=== PATIENT | male | born 1945 | race Asian ===

== ENCOUNTER 2018-01-08 14:00 | Inpatient (IN) | payer OTHER ==
[~2018-01-08] VITALS: Ht 162.6 cm; Wt 74.1 kg
[2018-01-08 15:14] LABS: Basophils # (auto) 0 uL; Basophils % (auto) 0.1 % (0.0-2.0); Eosinophils # (auto) 0 uL; Hematocrit 48.8 % (41.0-53.0); Hemoglobin 15.8 g/dL (13.5-17.5); Lymphocytes # (auto) 0.7 uL; Lymphocytes % (auto) 5.1 % (10.0-50.0); Mean Corpuscular Hemoglobin 31.8 pg (28.0-32.0); Mean Corpuscular Hgb Conc. 32.3 g/dL (32.0-36.0); Mean Corpuscular Volume 98.5 fL (80.0-100.0); Monocytes # (auto) 0.7 uL; Monocytes % (auto) 5.1 % (0.0-12.0); Neutrophils # (auto) 12.9 uL; Neutrophils % (auto) 89.7 % (37.0-80.0); Platelet Count (auto) 282 10^3/uL (140-450); Red Blood Cells 4.95 10^6/uL (4.5-5.90); Red Cell Distribution Width 13.7 % (11.8-14.3); White Blood Cell 14.4 10^3/uL (4.4-10.8)
[2018-01-08] MEDS ORDERED: SODIUM CHLORIDE 0.9% 1,000 ML IV ONE ×2 (15:18)
[2018-01-08] MEDS ORDERED: InsuLIN REG 1unit/0.01ml Soln (100units/ml) IV ONE (15:30)
[2018-01-08 15:32] LABS: Albumin 2.9 g/dL (3.4-5.0); BUN/Creatinine Ratio 19.5; Bilirubin, Total 0.8 mg/dL (0.2-1.0); Calcium 8.4 mg/dL (8.5-10.1); Magnesium 3.6 mg/dL (1.6-2.6); Potassium 4.6 mmol/L (3.5-5.1); Total Protein 7.1 g/dL (6.4-8.2)
[2018-01-08] MEDS ORDERED: PIPERACILLIN-TAZOB 3.375GM 100 ML IV ONE (16:00)
[2018-01-08] MEDS ORDERED: InsuLIN R (HUMAN) 100 UNITS in SODIUM CHL 0.9% 99 ML IV SCH ×2 (16:25→20:03)
[2018-01-08] MEDS ORDERED: DEXTROSE (50%) 50ML SYRG IV PRN (16:30)
[2018-01-08] MEDS: ACCU-CHEK COMFORT CURVE STRIP VI SCH ×5 (16:30→22:37)
[2018-01-08] MEDS ORDERED: cefTRIAXone 1GM/10ml IVPUSH 10 ML IV ONE (17:00)
[2018-01-08] MEDS ORDERED: ASPirin-EC 81 mg tab PO ONE ×2 (17:00→17:15)
[2018-01-08] MEDS ORDERED: DOCUSATE SOD 100 MG CAP PO PRN (17:15)
[2018-01-08] MEDS ORDERED: ACETAMINOPHEN 325 MG TAB PO PRN (17:15)
[2018-01-08] MEDS ORDERED: CARVEDILOL 3.125 MG TAB PO ONE (17:15)
[2018-01-08] MEDS ORDERED: FAMOTIDINE 20 MG TAB PO ONE (17:15)
[2018-01-08] MEDS ORDERED: MORPHINE SULF INJ 2 MG/ML SYRINGE 1ML IV PRN ×2 (17:15)
[2018-01-08] MEDS ORDERED: ENALAPRIL MALEATE 2.5 MG TAB PO ONE (17:15)
[2018-01-08] MEDS ORDERED: MULTIPLE VITAMIN TAB PO ONE (17:15)
[2018-01-08] MEDS ORDERED: NITROGLYCERIN 0.4 MG SL TAB SL PRN (17:15)
[2018-01-08] MEDS ORDERED: HYDROcodone-ACET 5/325MG TAB PO PRN (17:15)
[2018-01-08] MEDS ORDERED: TEMAZEPAM 15 MG CAP PO PRN (17:15)
[2018-01-08] MEDS ORDERED: ONDANSETRON HCL 4 MG/2 ML VIAL IV PRN (17:15)
[2018-01-08] MEDS: Glucerna Carbsteady SHAKE Vanilla 8oz PO SCH (18:00)
[2018-01-08 18:07] LABS: Urine Bacteria NONE SEEN /hpf (None Seen); Urine Blood Negative /uL (Negative); Urine Specific Gravity 1.026 (1.001-1.035); Urine WBC <1 /hpf (0 - 3)
[2018-01-08 18:15] LABS: Lactic Acid w/Reflex 2.2 mmol/L (0.4-2.0)
[2018-01-08 18:28] LABS: Magnesium 3.3 mg/dL (1.6-2.6); Phosphorus 3.8 mg/dL (2.5-4.90)
[2018-01-08] MEDS ORDERED: SODIUM CHLORIDE 0.9% 2,000 ML IV ONE (20:15)
[2018-01-08] MEDS: SODIUM CHLORIDE 0.9% 1,000 ML IV SCH ×2 (21:00→21:29)
[2018-01-08] MEDS: CARVEDILOL 3.125 MG TAB PO SCH (21:29)
[2018-01-08] MEDS: LINEZOLID 600MG/300ML 300 ML IV SCH (21:37)
[2018-01-08] MEDS: ATORVASTATIN 20 MG TAB PO SCH (21:38)
[2018-01-08] MEDS ORDERED: FAMOTIDINE 20 MG TAB PO SCH (22:00)
[2018-01-08 22:25] LABS: BUN/Creatinine Ratio 19.5; Calcium 7.5 mg/dL (8.5-10.1)
[2018-01-08 22:28] LABS: Lactic Acid w/Reflex 3.4 mmol/L (0.4-2.0)
[2018-01-09] MEDS: ACCU-CHEK COMFORT CURVE STRIP VI SCH ×9 (00:05→23:09)
[2018-01-09 03:36] LABS: Basophils # (auto) 0.1 uL; Basophils % (auto) 0.4 % (0.0-2.0); Eosinophils # (auto) 0 uL; Hematocrit 41.1 % (41.0-53.0); Hemoglobin 13.9 g/dL (13.5-17.5); Lymphocytes # (auto) 2.1 uL; Lymphocytes % (auto) 13.8 % (10.0-50.0); Mean Corpuscular Hemoglobin 30.7 pg (28.0-32.0); Mean Corpuscular Hgb Conc. 33.8 g/dL (32.0-36.0); Mean Corpuscular Volume 90.7 fL (80.0-100.0); Monocytes # (auto) 0.6 uL; Monocytes % (auto) 4.1 % (0.0-12.0); Neutrophils # (auto) 12.4 uL; Neutrophils % (auto) 81.7 % (37.0-80.0); Platelet Count (auto) 233 10^3/uL (140-450); Red Blood Cells 4.53 10^6/uL (4.5-5.90); Red Cell Distribution Width 12.9 % (11.8-14.3); White Blood Cell 15.2 10^3/uL (4.4-10.8)
[2018-01-09] MEDS: InsuLIN REG 1unit/0.01ml Soln (100units/ml) SC SCH ×6 (04:00→23:10)
[2018-01-09] MEDS: LINEZOLID 600MG/300ML 300 ML IV SCH ×2 (06:04→18:19)
[2018-01-09 06:18] VITALS: BP 126/69
[2018-01-09 06:27] VITALS: BP 126/69
[2018-01-09] MEDS ORDERED: ZOLP10TA PO (06:33)
[2018-01-09] MEDS: Glucerna Carbsteady SHAKE Vanilla 8oz PO SCH ×3 (08:00→18:00)
[2018-01-09 08:08] VITALS: BP 121/75
[2018-01-09] MEDS: cefTRIAXone 1GM/10ml IVPUSH 10 ML IV SCH (08:46)
[2018-01-09] MEDS ORDERED: FAMOTIDINE 20 MG TAB PO SCH (10:00)
[2018-01-09] MEDS: ASPirin-EC 81 mg tab PO SCH (10:08)
[2018-01-09] MEDS: CARVEDILOL 3.125 MG TAB PO SCH ×2 (10:08→22:58)
[2018-01-09] MEDS: MULTIPLE VITAMIN TAB PO SCH (10:08)
[2018-01-09] MEDS: ENALAPRIL MALEATE 2.5 MG TAB PO SCH (10:09)
[2018-01-09 11:02] LABS: Albumin 2.5 g/dL (3.4-5.0); BUN/Creatinine Ratio 18.6; Bilirubin, Total 0.7 mg/dL (0.2-1.0); Calcium 7.2 mg/dL (8.5-10.1)
[2018-01-09 11:07] LABS: Potassium 2.7 mmol/L (3.5-5.1)
[2018-01-09] MEDS ORDERED: POTASSIUM CHL 20MEQ/100ML 100 ML IV ONE ×2 (11:45→16:00)
[2018-01-09] MEDS ORDERED: POTASSIUM CHL 20 Meq TABLET PO ONE (11:45)
[2018-01-09 12:30] VITALS: BP 106/63
[2018-01-09] MEDS ORDERED: FLUCONAZOLE 200MG/100ML 100 ML IV ONE (15:45)
[2018-01-09 16:36] VITALS: BP 107/58
[2018-01-09] MEDS: NYSTATIN (MOUTH-THROAT) 500,000 UNITS/5 ML SUSP MT SCH ×2 (17:32→22:54)
[2018-01-09 22:00] VITALS: BP 125/63
[2018-01-09] MEDS: ATORVASTATIN 20 MG TAB PO SCH (22:54)
[2018-01-10] MEDS: InsuLIN REG 1unit/0.01ml Soln (100units/ml) SC SCH ×6 (03:43→23:46)
[2018-01-10] MEDS: ACCU-CHEK COMFORT CURVE STRIP VI SCH ×6 (03:43→23:45)
[2018-01-10 05:44] VITALS: BP 106/64
[2018-01-10 06:29] LABS: Basophils # (auto) 0 uL; Basophils % (auto) 0.2 % (0.0-2.0); Eosinophils # (auto) 0.1 uL; Eosinophils % (auto) 0.7 % (0.0-7.0); Hematocrit 35.9 % (41.0-53.0); Hemoglobin 12.6 g/dL (13.5-17.5); Lymphocytes # (auto) 2.4 uL; Lymphocytes % (auto) 24.6 % (10.0-50.0); Mean Corpuscular Hemoglobin 32.3 pg (28.0-32.0); Mean Corpuscular Hgb Conc. 35.2 g/dL (32.0-36.0); Mean Corpuscular Volume 91.9 fL (80.0-100.0); Monocytes # (auto) 0.6 uL; Monocytes % (auto) 6.4 % (0.0-12.0); Neutrophils # (auto) 6.5 uL; Neutrophils % (auto) 68.1 % (37.0-80.0); Platelet Count (auto) 190 10^3/uL (140-450); Red Blood Cells 3.91 10^6/uL (4.5-5.90); Red Cell Distribution Width 12.7 % (11.8-14.3); White Blood Cell 9.6 10^3/uL (4.4-10.8)
[2018-01-10] MEDS: NYSTATIN (MOUTH-THROAT) 500,000 UNITS/5 ML SUSP MT SCH ×4 (06:36→22:55)
[2018-01-10] MEDS: LINEZOLID 600MG/300ML 300 ML IV SCH ×2 (06:37→17:41)
[2018-01-10 07:02] LABS: Albumin 2.4 g/dL (3.4-5.0); BUN/Creatinine Ratio 15.9; Bilirubin, Total 1.4 mg/dL (0.2-1.0); Potassium 3.5 mmol/L (3.5-5.1); Total Protein 5.6 g/dL (6.4-8.2)
[2018-01-10] MEDS: cefTRIAXone 1GM/10ml IVPUSH 10 ML IV SCH (08:24)
[2018-01-10] MEDS: Glucerna Carbsteady SHAKE Vanilla 8oz PO SCH ×3 (08:25→17:41)
[2018-01-10 09:00] VITALS: BP 118/60
[2018-01-10] MEDS: CARVEDILOL 3.125 MG TAB PO SCH ×2 (10:30→22:56)
[2018-01-10] MEDS: FAMOTIDINE 20 MG TAB PO SCH ×2 (10:30→22:56)
[2018-01-10] MEDS: MULTIPLE VITAMIN TAB PO SCH (10:30)
[2018-01-10] MEDS: ASPirin-EC 81 mg tab PO SCH (10:30)
[2018-01-10] MEDS: ENALAPRIL MALEATE 2.5 MG TAB PO SCH (10:31)
[2018-01-10 13:00] VITALS: BP 108/66
[2018-01-10 17:00] VITALS: BP 122/62
[2018-01-10 20:00] VITALS: BP 133/73
[2018-01-10 22:00] VITALS: BP 132/73
[2018-01-10] MEDS: ATORVASTATIN 20 MG TAB PO SCH (22:55)
[2018-01-11] MEDS: ACCU-CHEK COMFORT CURVE STRIP VI SCH ×2 (04:07→08:14)
[2018-01-11] MEDS: InsuLIN REG 1unit/0.01ml Soln (100units/ml) SC SCH ×2 (04:07→08:29)
[2018-01-11 05:00] VITALS: BP 129/72
[2018-01-11] MEDS: NYSTATIN (MOUTH-THROAT) 500,000 UNITS/5 ML SUSP MT SCH (06:21)
[2018-01-11] MEDS: LINEZOLID 600MG/300ML 300 ML IV SCH (06:22)
[2018-01-11] MEDS: Glucerna Carbsteady SHAKE Vanilla 8oz PO SCH (08:13)
[2018-01-11] MEDS: cefTRIAXone 1GM/10ml IVPUSH 10 ML IV SCH (08:29)
[2018-01-11 09:00] VITALS: BP 111/65
[2018-01-11] MEDS: CARVEDILOL 3.125 MG TAB PO SCH (10:00)
[2018-01-11] MEDS: ASPirin-EC 81 mg tab PO SCH (10:02)
[2018-01-11] MEDS: MULTIPLE VITAMIN TAB PO SCH (10:02)
[2018-01-11] MEDS: FAMOTIDINE 20 MG TAB PO SCH (10:02)
[2018-01-11] MEDS: ENALAPRIL MALEATE 2.5 MG TAB PO SCH (10:03)
[2018-01-11 10:43] VITALS: BP 111/65
[2018-01-11 12:46] VITALS: BP 116/73
== END 2018-01-11 13:50 | disposition home or self-care (01) | DRG 871 ==
LOC: EDBD 14:00 → ER 14:00 → OVERFLOW 14:01 → WEST WING 01-09 04:14 → TELE-WESTW 01-09 05:46
PROVIDERS: ADMIT Internal Medicine; ATTEND Internal Medicine
DX: A41.9 Sepsis, unspecified organism (principal); E11.00 Type 2 diabetes mellitus with hyperosmolarity without nonketotic hyperglycemic-hyperosmolar coma (NKHHC); E44.0 Moderate protein-calorie malnutrition; I13.0 Hypertensive heart and chronic kidney disease with heart failure and stage 1 through stage 4 chronic kidney disease, or unspecified chronic kidney disease; N18.4 Chronic kidney disease, stage 4 (severe); N39.0 Urinary tract infection, site not specified; E11.21 Type 2 diabetes mellitus with diabetic nephropathy; E11.22 Type 2 diabetes mellitus with diabetic chronic kidney disease; E86.0 Dehydration; I25.10 Atherosclerotic heart disease of native coronary artery without angina pectoris; I50.9 Heart failure, unspecified; E78.5 Hyperlipidemia, unspecified; G96.8 Other specified disorders of central nervous system; I70.0 Atherosclerosis of aorta; I25.2 Old myocardial infarction; Z83.3 Family history of diabetes mellitus; Z91.14 Patient's other noncompliance with medication regimen; Z95.1 Presence of aortocoronary bypass graft; Z79.899 Other long term (current) drug therapy; Z68.28 Body mass index [BMI] 28.0-28.9, adult
CPT/HCPCS: 36415; 36600; 70450; 71045; 80048; 80053; 81001; 82010; 82805; 82962; 83036; 83605; 83735; 83880; 83930; 84100; 84443; 84484; 85025; 87040; 87086; 93005; 93306; 96361; 96365; 96367; 96375; G0378; J0696; J1450; J1815; J2543; J3480

== ENCOUNTER 2019-04-02 11:32 | Inpatient (IN) | payer OTHER ==
[2019-04-02] VITALS (34 sets, daily range): BP systolic 90–117; BP diastolic 38–65
[~2019-04-02] VITALS: Ht 167.6 cm; Wt 75.4 kg
[~2019-04-02 11:32] MED LIST: ZOLP10TA PO
[2019-04-02] MEDS: DOPamine 1600MCG/ML D5W 250 ML IV SCH ×2 (11:42→21:18)
[2019-04-02] MEDS: NOREPINEPHRINE 8 MG/250ML KIT 250 ML IV SCH ×2 (11:50→11:59)
[2019-04-02] MEDS ORDERED: NOREPINEPHRINE 8 MG/250ML KIT 250 ML IV ONE (11:52)
[2019-04-02] MEDS ORDERED: ONDANSETRON HCL 4 MG/2 ML VIAL ONE ×2 (11:56→13:30)
[2019-04-02] MEDS ORDERED: ASPirin 325 MG TAB PO ONE (12:00)
[2019-04-02] MEDS ORDERED: HEPARIN SODIUM (PORCINE) 5000 UNITS/ML 1ML VIAL IV ONE (12:00)
[2019-04-02 12:07] LABS: Basophils # (auto) 0.1 uL; Basophils % (auto) 0.7 % (0.0-2.0); Eosinophils # (auto) 0.6 uL; Eosinophils % (auto) 6.4 % (0.0-7.0); Hematocrit 39.9 % (41.0-53.0); Hemoglobin 13.4 g/dL (13.5-17.5); Lymphocytes # (auto) 4.1 uL; Lymphocytes % (auto) 45.2 % (10.0-50.0); Mean Corpuscular Hemoglobin 32.2 pg (28.0-32.0); Mean Corpuscular Hgb Conc. 33.7 g/dL (32.0-36.0); Mean Corpuscular Volume 95.5 fL (80.0-100.0); Monocytes # (auto) 0.5 uL; Monocytes % (auto) 5.8 % (0.0-12.0); Neutrophils # (auto) 3.8 uL; Neutrophils % (auto) 41.9 % (37.0-80.0); Nucleated Red Blood Cells % 0.1 %; Platelet Count (auto) 263 10^3/uL (140-450); Red Blood Cells 4.18 10^6/uL (4.5-5.90); Red Cell Distribution Width 13.3 % (11.8-14.3)
[2019-04-02] MEDS ORDERED: ONDANSETRON HCL 4 MG/2 ML VIAL IV ONE (12:15)
[2019-04-02 12:22] LABS: INR 1.07 (0.9-1.15); Partial Thromboplastin Time 26.2 sec (23.64-32.05)
[2019-04-02 12:24] LABS: Albumin 3.4 g/dL (3.4-5.0); Calcium 8.1 mg/dL (8.5-10.1); Magnesium 2.3 mg/dL (1.6-2.6); Potassium 3.8 mmol/L (3.5-5.1)
[2019-04-02] MEDS ORDERED: IOHEXOL 350 MG/ML 100ML IJ ONE (12:29)
[2019-04-02 12:30] LABS: BUN/Creatinine Ratio 19.3; Bilirubin, Total 0.8 mg/dL (0.2-1.0); Total Protein 7.2 g/dL (6.4-8.2)
[2019-04-02] MEDS ORDERED: SODIUM CHLORIDE 0.9% 2,000 ML IV ONE (12:30)
[2019-04-02] MEDS ORDERED: LIDOCAINE 2%HCL (LOCAL ANESTH.) INJ 20ML MDV ONE (12:30)
[2019-04-02] MEDS ORDERED: ANGIOMAX 250 MG VIAL IV ONE (12:30)
[2019-04-02] MEDS ORDERED: MIDAZOLAM HCL 1MG/1ML-2 ML VIAL ONE (12:31)
[2019-04-02] MEDS ORDERED: fentaNYL CITRATE 100 MCG/2 ML VL ONE (12:31)
[2019-04-02] MEDS ORDERED: SODIUM CHL 0.9% 50 ML ONE (12:31)
[2019-04-02] MEDS ORDERED: EPTIFIBATIDE INJ (2MG/ML) 10ML VIAL IV ONE (12:32)
[2019-04-02] MEDS ORDERED: EPINEPHrine HCL 1 MG/10 ML SYRG ONE (12:42)
[2019-04-02] MEDS ORDERED: ATROPINE SULF 1 MG/10ml SYR ONE (12:42)
[2019-04-02] MEDS ORDERED: DEXTROSE (50%) 50ML SYRG IV PRN (12:45)
[2019-04-02] MEDS ORDERED: hydrALAZINE HCL 20 MG/ML VL IV PRN (12:45)
[2019-04-02] MEDS ORDERED: ONDANSETRON HCL 4 MG/2 ML VIAL IV PRN (12:45)
[2019-04-02] MEDS ORDERED: HYDROcodone-ACET 5/325MG TAB PO PRN (12:45)
[2019-04-02] MEDS ORDERED: MORPHINE SULF INJ 2 MG/ML SYRINGE 1ML IV PRN ×2 (12:45)
[2019-04-02] MEDS ORDERED: ACETAMINOPHEN 500 MG TAB PO PRN (12:45)
[2019-04-02] MEDS ORDERED: NITROGLYCERIN 0.4 MG SL TAB SL PRN (12:45)
[2019-04-02] MEDS ORDERED: IODIXANOL 320MG/ML 100ML BTL IV ONE (12:51)
[2019-04-02 13:17] LABS: Cholesterol 159 mg/dL (< 200); Triglycerides 156 mg/dL (< 150)
[2019-04-02 13:19] LABS: HDL Cholesterol 57 mg/dL (40-59); LDL Cholesterol 90 mg/dL (< 100)
[2019-04-02] MEDS ORDERED: CLOPIDOGREL 300 MG TAB ONE (13:28)
[2019-04-02] MEDS: SODIUM CHLORIDE 0.9% 1,000 ML IV SCH ×2 (14:59→21:17)
--- NOTE | 2019-04-02 15:39 | NUR ---
ICU pt S/P Cardiac Cath Report received from JOSH VELASQUEZ. LUIS ANTONIO BETH brought to bed following Cardiac catheterization, on groundwater monitoring technician and portable oxygen. Patient transfered to ICU bed, connected to ICU monitoring and oxygen. ANGIOSEAL RT. GROIN. Patient educated on need to keep leg straight and flat. Patient verbalized understanding. Site assessed for any bleeding, redness or swelling. Pedal pulses on affected leg assessed for positive tissue perfusion. Patient instructed on need to notify staff immediately if any pain, burning or wetness to site, and any lower back pain. Patient educated on new cardiac medications. All questions and concerns addressed, patient verbalized understanding of all education and instruction. See notes for any further. NOTE:
--- NOTE | 2019-04-02 16:45 | NUR ---
Family updated on pt status Family of LUIS ANTONIO BETH updated on patient's status and condition. All questions and concerns addressed. verbalized understanding. VISITING AT THE BS.
[2019-04-02] MEDS: ACCU-CHEK COMFORT CURVE STRIP VI SCH ×2 (17:04→21:49)
[2019-04-02] MEDS: InsuLIN REG 1unit/0.01ml Soln (100units/ml) SC SCH ×2 (17:06→21:49)
[2019-04-02] MEDS ORDERED: DOPamine 1600mCg/ml 400MG/250ml NSorD5 KIT/BAG IV ONE (17:37)
[2019-04-02] MEDS: ATORVASTATIN 20 MG TAB PO SCH (21:39)
[2019-04-03] VITALS (94 sets, daily range): BP systolic 72–131; BP diastolic 20–79
[2019-04-03 04:12] LABS: INR 1.07 (0.9-1.15); Partial Thromboplastin Time 29.1 sec (23.64-32.05)
[2019-04-03] MEDS: SODIUM CHLORIDE 0.9% 1,000 ML IV SCH ×4 (04:12→19:38)
[2019-04-03 04:17] LABS: BUN/Creatinine Ratio 19.6; Calcium 7.7 mg/dL (8.5-10.1); Potassium 3.2 mmol/L (3.5-5.1)
[2019-04-03 04:19] LABS: Basophils # (auto) 0.1 uL; Basophils % (auto) 0.4 % (0.0-2.0); Eosinophils # (auto) 0 uL; Hematocrit 32.8 % (41.0-53.0); Hemoglobin 11.8 g/dL (13.5-17.5); Lymphocytes # (auto) 1.3 uL; Lymphocytes % (auto) 9.1 % (10.0-50.0); Mean Corpuscular Hemoglobin 32.8 pg (28.0-32.0); Mean Corpuscular Hgb Conc. 35.9 g/dL (32.0-36.0); Mean Corpuscular Volume 91.4 fL (80.0-100.0); Monocytes % (auto) 7.3 % (0.0-12.0); Neutrophils # (auto) 11.4 uL; Neutrophils % (auto) 83.2 % (37.0-80.0); Nucleated Red Blood Cells % 0.1 %; Platelet Count (auto) 242 10^3/uL (140-450); Red Blood Cells 3.59 10^6/uL (4.5-5.90); White Blood Cell 13.7 10^3/uL (4.4-10.8)
--- NOTE | 2019-04-03 06:00 | NUR ---
ASSESSMENT Patient slept on and off during night. No hematoma or bleeding at angio site. vital signs are stable with drips.
[2019-04-03] MEDS: ACCU-CHEK COMFORT CURVE STRIP VI SCH ×4 (06:45→22:13)
[2019-04-03] MEDS: InsuLIN REG 1unit/0.01ml Soln (100units/ml) SC SCH ×4 (06:45→22:13)
[2019-04-03] MEDS: DOPamine 1600MCG/ML D5W 250 ML IV SCH ×2 (06:48→17:35)
--- NOTE | 2019-04-03 07:30 | NUR ---
REPORT REPORT RECEIVED FROM ESSIE RNBRIANNA. PT RESTING IN BED WITH EYES CLOSED AND VSS. CONTINUE TO MONITOR.
--- NOTE | 2019-04-03 09:30 | NUR ---
PT GOT UP WITH THE HELP OF HIS TO VOID IN THE TOILET. HE SAID HE TOLERATED IT FINE. INSTRUCTED PT TO NOT GET OOB DUE TO LOW BP AND ON PRESSORS. HE EXPRESSED UNDERSTANDING.
[2019-04-03] MEDS: CLOPIDOGREL BISULFATE 75 MG TAB PO SCH (09:49)
[2019-04-03] MEDS: ASPirin-EC 81 mg tab PO SCH (09:49)
--- NOTE | 2019-04-03 11:50 | NUR ---
DR WANG IS ASSIGNED TO THE PT AND CALLED AND LEFT A MESSAGE TO NOTIFY OF K 3.2.
--- NOTE | 2019-04-03 12:52 | NUR ---
FREDDIE CUTLER REGARDING LOW SODIUM OF 128. Addendum: 04/03/19 at 1305 by Che Rob RN ERROR WRONG PATIENT
--- NOTE | 2019-04-03 12:55 | NUR ---
MD VISIT PT SEEN AND EXAMINED BY DR WANG. UPDATED HIM ON THE TP'S CURRENT CONDITION AND POC AND NOTIFIED HIM OF K 3.2. ORDERS RECEIVED FOR KCL EFFERVESCENT 50mEQ PO NOW. CHECK K AND MAGNESIUM LEVELS AT 1600. LEVOPHED TURNED DOWN TO 3 MCG BP OF 120/66. CONTINUE TO MONITOR.
[2019-04-03] MEDS ORDERED: POTASSIUM EFFERVESENT TAB 25 MEQ PO ONE (13:00)
[2019-04-03] MEDS ORDERED: POTASSIUM EFFERVESENT TAB 25 MEQ GT ONE (13:15)
[2019-04-03] MEDS ORDERED: POTASSIUM EFFERVESENT TAB 25 MEQ GT PRN (13:15)
[2019-04-03 16:28] LABS: Magnesium 1.9 mg/dL (1.6-2.6); Potassium 3.9 mmol/L (3.5-5.1)
[2019-04-03] MEDS: NOREPINEPHRINE 8 MG/250ML KIT 250 ML IV SCH (17:34)
--- NOTE | 2019-04-03 17:55 | NUR ---
ACCUCHECK OF 145 AND PT GIVEN 2 UNITS OF REGULAR INSULIN SQ. Addendum: 04/03/19 at 2010 by Che Rob RN LEVOPHED TURNED OFF BP 116/61, WAS INFUSING AT 1 MCG.
--- NOTE | 2019-04-03 19:30 | NUR ---
MAGNESIUM LEVEL OF 1.9 AND PT TO BE GIVEN 2 GM IV MAGNESIUM PER STANDING ORDER. STARTED FIRST GRAM TO RUN OVER ONE HOUR.
[2019-04-03] MEDS: MAGNESIUM SULFATE 1GM/100ML 100 ML IV PRN ×2 (19:35→20:57)
--- NOTE | 2019-04-03 19:45 | NUR ---
REPORT REPORT GIVEN TO BRIANNA FOUNTAIN RN.
--- NOTE | 2019-04-03 20:11 | NUR ---
PT RESTING QUIETLY, DENIES ANY PAIN, SOB OR N/V. CONTINUE TO MONITOR,.
[2019-04-03] MEDS: ATORVASTATIN 20 MG TAB PO SCH (22:13)
[2019-04-04] VITALS (65 sets, daily range): BP systolic 91–141; BP diastolic 39–87
[2019-04-04] MEDS: SODIUM CHLORIDE 0.9% 1,000 ML IV SCH ×2 (03:45→13:08)
[2019-04-04 04:06] LABS: Potassium 3.7 mmol/L (3.5-5.1)
[2019-04-04 04:10] LABS: BUN/Creatinine Ratio 15.9; Calcium 7.8 mg/dL (8.5-10.1); Magnesium 2.4 mg/dL (1.6-2.6)
--- NOTE | 2019-04-04 04:20 | NUR ---
OUT OF BED WITNESSED PATIENT STANDING IN THE ROOM. ALL THE WIRES AND IVS ARE CONNECTED BUT OXYGEN IS REMOVED. PATIENT DID NOT USE CALL LIGHT EVEN IF IT WAS INSTRUCTED TO DO. NOTED CALL LIGHT IS ON THE BED. WHEN ASKED HE SAID THAT HE WAS GOING TO USE RESTROOM AND HE DIDN'T WANT TO DISTURB ANYONE. PATIENT IS AWAKE ALERT AND ORIENTED X4. SAT. SHOWS 82%. PLACED PATIENT ON 2L OXYGEN VIA NASAL CANNULA. PATIENT USED RESTROOM AND SAT ON THE RECLINER HE WANTED. Addendum: 04/04/19 at 0433 by Andre Yeung RN INSTRUCTED PATIENT TO USE CALL LIGHT WHEN HE NEEDS ANY HELP.
[2019-04-04 04:23] LABS: Cholesterol 129 mg/dL (< 200); HDL Cholesterol 69 mg/dL (40-59); LDL Cholesterol 57 mg/dL (< 100); Triglycerides 87 mg/dL (< 150)
[2019-04-04 04:34] LABS: Basophils # (auto) 0 uL; Basophils % (auto) 0.1 % (0.0-2.0); Eosinophils # (auto) 0 uL; Eosinophils % (auto) 0.1 % (0.0-7.0); Hematocrit 32.5 % (41.0-53.0); Hemoglobin 11.1 g/dL (13.5-17.5); Lymphocytes # (auto) 1.1 uL; Lymphocytes % (auto) 9.3 % (10.0-50.0); Mean Corpuscular Hemoglobin 31.8 pg (28.0-32.0); Mean Corpuscular Volume 93.5 fL (80.0-100.0); Monocytes # (auto) 0.9 uL; Monocytes % (auto) 6.9 % (0.0-12.0); Neutrophils # (auto) 10.3 uL; Neutrophils % (auto) 83.6 % (37.0-80.0); Platelet Count (auto) 199 10^3/uL (140-450); Red Blood Cells 3.48 10^6/uL (4.5-5.90); Red Cell Distribution Width 13.1 % (11.8-14.3); White Blood Cell 12.3 10^3/uL (4.4-10.8)
--- NOTE | 2019-04-04 06:00 | NUR ---
PATIENT IS SITTING ON THE RECLINER AND SLEEPING. VITAL SIGNS ARE STABLE
[2019-04-04] MEDS: InsuLIN REG 1unit/0.01ml Soln (100units/ml) SC SCH ×4 (07:00→22:00)
[2019-04-04] MEDS: ACCU-CHEK COMFORT CURVE STRIP VI SCH ×4 (07:00→22:00)
--- NOTE | 2019-04-04 07:30 | NUR ---
REPORT REPORT RECEIVED FROM ESSIE RNBRIANNA. PT SITTING UP IN THE CHAIR, EYES CLOSED, APPEARS TO BE ASLEEP. VSS. REMAINS ON DOPAMINE DRIP , CURRENTLY AT 3 MCG/KG/MIN. CONTINUE TO MONITOR.
--- NOTE | 2019-04-04 08:05 | NUR ---
ASSESSMENT PT AWAKE AND SITTING UP IN THE RECLINER WITH HIS LEGS ELEVATED. A/O X4. MOVES ALL EXTREMITIES. ABLE TO FOLLOW SIMPLE COMMANDS. LUNGS CLEAR EXCEPT FOR DIMINISHED WITH INSPIRATORY CRACKLES IN THE BILATERAL BASES POSTERIOR. O2 AT 3 L/M VIA NC WITH AN O2 SAT OF 88-89%. INCREASED THE O2 TO 4 L/M VIA NC WITH O2 SAT THEN UP TO 92%. TELE SR 96 WITH A FIRST DEGREE HB . PALPABLE PULSES TO ALL EXTREMITIES WITH NO EDEMA NOTED. ABD SOFT WITH + BOWEL SOUNDS NOTED. LAST BM WAS SUNDAY. USES URINAL AND HE VOIDED QS CLEAR YELLOW URINE. PT WITH IV DOPAMINE AT 3 MCG AND BP OF 111/59 AND SO TURNED DOWN TO 2 MCG. DENIES ANY PAIN, SOB OR N/V. CONTINUE TO MONITOR.
--- NOTE | 2019-04-04 09:39 | NUR ---
ASSISTED PT FROM CHAIR TO TOILET. GAVE LIGHT FOR CALL ORTEGA TO USE WHEN HE IS FINISHED. AT THE BEDSIDE. I INSTRUCTE HIM NOT TO GET UP BY HIMSELF. HE EXPRESSED UNDERSTANDING.
--- NOTE | 2019-04-04 09:47 | NUR ---
ELIMINATION/ACTIVITY ASSISTED PT BACK TO THE CHAIR FROM THE TOILET. ASSISTED PT WITH PERICARE. PT ABLE TO HAVE A BM. NOT SEEN BY RN.
[2019-04-04] MEDS: ASPirin-EC 81 mg tab PO SCH (10:05)
[2019-04-04] MEDS: CLOPIDOGREL BISULFATE 75 MG TAB PO SCH (10:05)
--- NOTE | 2019-04-04 11:10 | NUR ---
PT REMAINS UP IN THE CHAIR. BP OF 106/68 AND TURNED OFF DOPAMINE. CONTINUE TO MONITOR BP.
--- NOTE | 2019-04-04 12:15 | NUR ---
ACCUCHECK OF 112 AND NO COVERAGE PER SLIDING SCALE. PT REMAINS UP IN THE CHAIR. DENIES ANY DISCOMFORT OR SOB.
--- NOTE | 2019-04-04 13:55 | NUR ---
MD VISIT PT SEEN AND EXAMINED BY DR WANG. PT CAN BE DOWNGRADED TO TELEMETRY IF BP REMAINS STALE AT 1600.
--- NOTE | 2019-04-04 15:00 | NUR ---
ASSISTED PT TO TOILET WHERE HE VOIDED QS AND THEN BACK TO THE CHAIR. PT SOB AND O2 SAT OF 84% ALTHOUGH O2 HAS COME OUT OF PT'S NOSE. REAPPLIED O2 AND ASSISTED PT INTO CHAIR. I HAD HIM TAKE DEEP BREATHS AND O2 SAT UP TO 92%. IVF DISCONTINUED PER MD ORDER. CONTINUE TO MONITOR.
--- NOTE | 2019-04-04 16:00 | NUR ---
WASHED HAIR WITH SHAMPOO CAP AND GIVEN CHG BATH. CLEAN GOWN AND TELE MONITOR #2 APPLIED.
--- NOTE | 2019-04-04 16:16 | NUR ---
PT BEING TRANSFERRED TO ROOM 249b. PT AND HIS ARE AWARE. ATTEMPTED TO CALL REPORT BUT RN PROVIDING PT CARE.
--- NOTE | 2019-04-04 16:34 | NUR ---
REPORT CALLED TO BECKA, RECEIVING RN, FOR ROOM 249b.
--- NOTE | 2019-04-04 17:15 | NUR ---
TRANSFERRED PT TO ROOM #249B VIA BED WITH ALL BELONGINGS ACCOMPANIED BY HIS . PLACED IN ROOM 249B AND CONNECTED TO BEDSIDE O2 AND MADE B[facility]KA, RECEIVING RN, AWARE OF PT'S ARRIVAL.
--- NOTE | 2019-04-04 17:20 | NUR ---
PT ARRIVED FROM ICU VIA WHEELCHAIR, ALERT ORIENTED X4, NO DISTRESS NOTED, PT ASSISTED IN BED, PT STARTED TACHYPNEIC, SATURATION 78%, APPLIED OXYGEN 3 LITER, SATURATION WHEN UP SLOWLY TO 93 %, PT AT BED SIDE AWARE
--- NOTE | 2019-04-04 17:30 | NUR ---
PT CONTINUE TO BE TACHY DIANDRAA 107, TACHYPNEIC 25, PAGE RESPIRATORY THERAPIST, PAGE MY CHARGE NURSE AND LET HER KNOW MY PT UPDATE
--- NOTE | 2019-04-04 17:40 | NUR ---
BM PT HAS LARGE BM, KEPT CLEAN AND DRY, PATIENT'S ALWAYS ASSISTING HER STATED HE USED OM ME
--- NOTE | 2019-04-04 17:50 | NUR ---
PAGE DR WANG PT IS NOT IMPROVING
[2019-04-04] MEDS ORDERED: FUROSEMIDE 40 MG/4 ML VIAL ONE (17:56)
--- NOTE | 2019-04-04 17:57 | NUR ---
DR WANG CALLED BACK WITH STAT ORDERS OF CHEST X RAY STAT AND LASIX 30 MG X 1 DOSE NOW STATED PT IS FLUID OVER LOAD AND NEED TO BE DIURESIS
[2019-04-04] MEDS ORDERED: FUROSEMIDE 40 MG/4 ML VIAL IV ONE (18:00)
--- NOTE | 2019-04-04 18:00 | NUR ---
PT SYMPTOMS START IMPROVED, PT APPEAR CALM AND RELAX, CONTINUE MONITORING PT, PATIENT'S AT BED SIDE
--- NOTE | 2019-04-04 18:14 | NUR ---
PT CONTINUE STABLE CONTINUE MONITORING
--- NOTE | 2019-04-04 20:00 | NUR ---
Opening Shift Note Assumed care of patient, awake and alert. Patient complains of increased shortness of breath. Respirations slightly labored; breath sounds diminished; skin color pale. SP02 95% with Oxygen at 5l/min via nasal canula. Respiratory Therapy called to patient's bedside for evaluation. Oxygen increased to 9L/min via Oxymizer. Patient instructed on POC and to call for assist PRN, will continue to monitor for changes Q1hr and PRN. Bed in low position and call light in reach.
--- NOTE | 2019-04-04 21:34 | NUR ---
Dr. Nain Maldonado at patient's bedside for evaluation. New orders written for AM labs: BNP, CBC, CMP and Chest x-ray.
[2019-04-04] MEDS: ATORVASTATIN 20 MG TAB PO SCH (22:13)
[2019-04-05 05:00] VITALS: BP 150/79
[2019-04-05] MEDS: ACCU-CHEK COMFORT CURVE STRIP VI SCH ×4 (06:11→22:19)
[2019-04-05] MEDS: InsuLIN REG 1unit/0.01ml Soln (100units/ml) SC SCH ×4 (06:11→22:00)
--- NOTE | 2019-04-05 06:30 | NUR ---
Patient noted with loose brown stool x2. Patient states he has had "diarrhea" since and requested that I contact Dr. Maldonado. No abdominal pain or cramping. Patient is afebrile.
[2019-04-05 06:40] LABS: Basophils # (auto) 0 uL; Basophils % (auto) 0.2 % (0.0-2.0); Eosinophils # (auto) 0 uL; Hematocrit 33.7 % (41.0-53.0); Hemoglobin 11.9 g/dL (13.5-17.5); Lymphocytes # (auto) 1.8 uL; Lymphocytes % (auto) 11.1 % (10.0-50.0); Mean Corpuscular Hemoglobin 32.3 pg (28.0-32.0); Mean Corpuscular Hgb Conc. 35.2 g/dL (32.0-36.0); Mean Corpuscular Volume 91.7 fL (80.0-100.0); Monocytes % (auto) 6.4 % (0.0-12.0); Neutrophils # (auto) 13.1 uL; Neutrophils % (auto) 82.3 % (37.0-80.0); Platelet Count (auto) 231 10^3/uL (140-450); Red Blood Cells 3.68 10^6/uL (4.5-5.90); White Blood Cell 15.9 10^3/uL (4.4-10.8)
[2019-04-05] MEDS ORDERED: FUROSEMIDE 20 MG/2 ML VIAL IV ONE (07:00)
[2019-04-05 07:04] LABS: BUN/Creatinine Ratio 17.7; Magnesium 2.3 mg/dL (1.6-2.6); Potassium 3.5 mmol/L (3.5-5.1)
--- NOTE | 2019-04-05 07:20 | NUR ---
PATIENT AWAKE, ALERT, ORIENTEDx4. LABORED BREATHING, PURSED LIP. ON OXYMIZER NC AT 9L 98% SOB ON EXERTION. PROVIDED HYGIENE CARE. PT HAD BM LIQUID BROWN. BED LOCKED AND IN LOWEST POSITION, CALL LIGHT WITHIN REACH. WILL CONTINUE TO MONITOR.
[2019-04-05 09:00] VITALS: BP 150/85
[2019-04-05] MEDS: CLOPIDOGREL BISULFATE 75 MG TAB PO SCH (10:17)
[2019-04-05] MEDS: ASPirin-EC 81 mg tab PO SCH (10:17)
[2019-04-05] MEDS ORDERED: METOPROLOL SUCCINATE XL 50 MG TAB PO SCH (11:15)
[2019-04-05] MEDS ORDERED: POTASSIUM CHL 20 Meq TABLET PO ONE (12:30)
[2019-04-05] MEDS ORDERED: DIPHENOXYLATE W/ATROPINE 2.5 MG TAB PO PRN (12:30)
[2019-04-05] MEDS ORDERED: DOXYCYCLINE 100MG/250ML 250 ML IV SCH (12:30)
[2019-04-05 13:00] VITALS: BP 135/79
[2019-04-05] MEDS: PIPERACILLIN-TAZOB 3.375GM 100 ML IV SCH ×2 (14:39→20:10)
[2019-04-05] MEDS: CARVEDILOL 3.125 MG TAB PO SCH ×2 (14:41→22:15)
[2019-04-05 17:00] VITALS: BP 123/73
--- NOTE | 2019-04-05 17:25 | NUR ---
PT C/O SOB AT REST. PT USING ACCESSORY MUSCLES. PLACED PT ON TRIPOD VS: 97.9; 95; 28; 96% 9L OXYMIZER; 140/80 DR. WANG CONTACTED, AND MADE AWARE OF STATUS. PER MD PT TO BE TRANSFERRED TO [facility], CHARGE NURSE, SPECIAL DELIVERY WORKER MADE AWARE. WILL CONTINUE TO MONITOR.
[2019-04-05] MEDS ORDERED: FUROSEMIDE 20 MG TAB PO SCH (18:00)
[2019-04-05] MEDS: FUROSEMIDE 20 MG/2 ML VIAL IV SCH (18:00)
--- NOTE | 2019-04-05 18:30 | NUR ---
PT IN TRIPOD- STATES FEELING BETTER, EASIER TO BREATH. FAMILY AT BEDSIDE. AWAITING TRANSFER WILL CONTINUE TO MONITOR.
[2019-04-05 22:00] VITALS: BP 136/73
[2019-04-05] MEDS ORDERED: LISINOPRIL 5 MG TAB PO SCH (22:00)
[2019-04-05] MEDS: ATORVASTATIN 20 MG TAB PO SCH (22:14)
[2019-04-05 23:05] VITALS: BP 136/73
[2019-04-06] MEDS: PIPERACILLIN-TAZOB 3.375GM 100 ML IV SCH ×4 (01:48→20:13)
[2019-04-06] MEDS: FUROSEMIDE 20 MG/2 ML VIAL IV SCH ×2 (05:44→17:52)
[2019-04-06] MEDS: ACCU-CHEK COMFORT CURVE STRIP VI SCH ×4 (05:50→22:13)
[2019-04-06] MEDS: InsuLIN REG 1unit/0.01ml Soln (100units/ml) SC SCH ×4 (05:55→22:00)
[2019-04-06 06:00] VITALS: BP 126/75
--- NOTE | 2019-04-06 07:10 | NUR ---
PT ON HIGH FOWLERS, ON BIPAP AT MOMENT. TOLERATING WELL. RR: 17; 98% BED LOCKED AND IN LOWEST POSITION, CALL LIGHT WITHIN REACH. WILL CONTINUE TO MONITOR.
[2019-04-06 07:20] LABS: Basophils # (auto) 0.1 uL; Basophils % (auto) 0.4 % (0.0-2.0); Eosinophils # (auto) 0.1 uL; Eosinophils % (auto) 0.5 % (0.0-7.0); Hematocrit 33.5 % (41.0-53.0); Hemoglobin 11.6 g/dL (13.5-17.5); Lymphocytes % (auto) 8.6 % (10.0-50.0); Mean Corpuscular Hemoglobin 32.4 pg (28.0-32.0); Mean Corpuscular Hgb Conc. 34.7 g/dL (32.0-36.0); Mean Corpuscular Volume 93.4 fL (80.0-100.0); Monocytes # (auto) 0.8 uL; Monocytes % (auto) 7.4 % (0.0-12.0); Neutrophils # (auto) 9.3 uL; Neutrophils % (auto) 83.1 % (37.0-80.0); Platelet Count (auto) 241 10^3/uL (140-450); Red Blood Cells 3.58 10^6/uL (4.5-5.90); White Blood Cell 11.2 10^3/uL (4.4-10.8)
--- NOTE | 2019-04-06 07:40 | NUR ---
RT NOTE: PT WAS TAKEN OFF OF BIPAP AT THIS TIME. PT WAS PLACED ON 6L OXYMIZER. PT STATED THAT HE FEELS BETTER. NO S/S OF SOB. JOSH HUANG MADE AWARE OF CHANGES. WILL CONTINUE TO MONITOR PT.
[2019-04-06 07:42] LABS: Potassium 3.3 mmol/L (3.5-5.1)
[2019-04-06 07:45] LABS: BUN/Creatinine Ratio 21.5
--- NOTE | 2019-04-06 07:50 | NUR ---
PT ON HIGH FOWLERS; NOW ON 6L OXYMIZER, TOLERATING WELL. PT REPORTS BREATHING IS EASIER. RR:19; HR: 80; 98% CALL LIGHT WITHIN REACH.
[2019-04-06 09:00] VITALS: BP 104/59
[2019-04-06] MEDS: CARVEDILOL 3.125 MG TAB PO SCH ×2 (10:24→22:11)
[2019-04-06] MEDS: CLOPIDOGREL BISULFATE 75 MG TAB PO SCH (10:24)
[2019-04-06] MEDS: ASPirin-EC 81 mg tab PO SCH (10:24)
[2019-04-06] MEDS ORDERED: POTASSIUM EFFERVESENT TAB 25 MEQ PO ONE (11:15)
--- NOTE | 2019-04-06 11:42 | NUR ---
DR. WANG IN TO SEE PT. PT AND IN AGREEMENT WITH PLAN OF CARE. PT CURRENTLY ON 5L OXYMIZER. TOLERATING THERAPY WELL.
[2019-04-06 13:00] VITALS: BP 108/71
--- NOTE | 2019-04-06 13:58 | NUR ---
SPUTUM & STOOL SPECIMEN COLLECTED; SENT TO LAB.
--- NOTE | 2019-04-06 15:23 | NUR ---
Nutrition Assessment Notes Est energy needs: [id number] kcals (23-25 kcals BW) Est protein needs: 58-73 gms (0.8-1.0 gms/kg BW) Will continue to monitor and reassess prn. Addendum: 04/06/19 at [address] Amended: Links added.
[2019-04-06 17:00] VITALS: BP 120/66
[2019-04-06 22:00] VITALS: BP 122/70
[2019-04-06] MEDS: ATORVASTATIN 20 MG TAB PO SCH (22:10)
[2019-04-07] MEDS: PIPERACILLIN-TAZOB 3.375GM 100 ML IV SCH ×4 (01:56→20:23)
[2019-04-07 05:00] VITALS: BP 118/65
[2019-04-07] MEDS: ACCU-CHEK COMFORT CURVE STRIP VI SCH ×4 (06:04→21:14)
[2019-04-07] MEDS: FUROSEMIDE 20 MG/2 ML VIAL IV SCH ×2 (06:04→18:44)
[2019-04-07] MEDS: InsuLIN REG 1unit/0.01ml Soln (100units/ml) SC SCH ×4 (06:04→21:14)
--- NOTE | 2019-04-07 06:33 | NUR ---
Respiratory note: TOOK PT OFF BIPAP AND PLACED ON 4L OXYMIZER. HR 59, RR 20, SPO2 100%. NO RESP DISTRESS NOTED.
[2019-04-07 07:34] LABS: Basophils # (auto) 0.1 uL; Basophils % (auto) 0.7 % (0.0-2.0); Eosinophils # (auto) 0.2 uL; Eosinophils % (auto) 2.4 % (0.0-7.0); Hematocrit 34.2 % (41.0-53.0); Hemoglobin 11.9 g/dL (13.5-17.5); Lymphocytes # (auto) 1.2 uL; Lymphocytes % (auto) 12.6 % (10.0-50.0); Mean Corpuscular Hemoglobin 32.4 pg (28.0-32.0); Mean Corpuscular Hgb Conc. 34.9 g/dL (32.0-36.0); Monocytes # (auto) 0.6 uL; Monocytes % (auto) 6.9 % (0.0-12.0); Neutrophils % (auto) 77.4 % (37.0-80.0); Platelet Count (auto) 271 10^3/uL (140-450); Red Blood Cells 3.67 10^6/uL (4.5-5.90); White Blood Cell 9.1 10^3/uL (4.4-10.8)
[2019-04-07 07:47] LABS: Calcium 8.1 mg/dL (8.5-10.1); Potassium 3.2 mmol/L (3.5-5.1)
[2019-04-07 09:09] VITALS: BP 118/63
[2019-04-07] MEDS: ASPirin-EC 81 mg tab PO SCH (11:47)
[2019-04-07] MEDS: CLOPIDOGREL BISULFATE 75 MG TAB PO SCH (11:47)
[2019-04-07] MEDS: CARVEDILOL 3.125 MG TAB PO SCH ×2 (11:49→21:14)
[2019-04-07 13:00] VITALS: BP 102/70
--- NOTE | 2019-04-07 15:50 | NUR ---
Dr. Hylton manager surgical at bedside discussing POC with patient and family .
[2019-04-07 17:07] VITALS: BP 120/59
[2019-04-07] MEDS: POTASSIUM EFFERVESENT TAB 25 MEQ PO SCH (18:38)
--- NOTE | 2019-04-07 18:59 | NUR ---
Currently titrated to 3 Liters via oximeter per Doctor's order
[2019-04-07] MEDS: ATORVASTATIN 20 MG TAB PO SCH (21:13)
[2019-04-07 22:00] VITALS: BP 127/70
[2019-04-08] MEDS: PIPERACILLIN-TAZOB 3.375GM 100 ML IV SCH ×3 (02:20→13:32)
[2019-04-08] MEDS: POTASSIUM EFFERVESENT TAB 25 MEQ PO SCH ×2 (02:20→10:46)
--- NOTE | 2019-04-08 06:50 | NUR ---
HR 66, RR 14, SPO2 97% ON 4 L OXYMIZER. PT IS OFF BIPAP SOWING NO SIGNS OF RESPIRATORY DISTRESS NOTED AT THIS TIME Respiratory note:
[2019-04-08] MEDS: InsuLIN REG 1unit/0.01ml Soln (100units/ml) SC SCH ×4 (07:00→21:05)
[2019-04-08] MEDS: FUROSEMIDE 20 MG/2 ML VIAL IV SCH (07:07)
[2019-04-08] MEDS: ACCU-CHEK COMFORT CURVE STRIP VI SCH ×4 (07:07→21:05)
[2019-04-08 08:00] VITALS: BP 126/75
[2019-04-08 08:41] LABS: BUN/Creatinine Ratio 18.9; Calcium 8.5 mg/dL (8.5-10.1); Magnesium 2.3 mg/dL (1.6-2.6); Potassium 3.4 mmol/L (3.5-5.1)
[2019-04-08] MEDS ORDERED: ENOXAPARIN SOD 30 MG/0.3 ML SYRINGE SC SCH (10:00)
[2019-04-08] MEDS: CLOPIDOGREL BISULFATE 75 MG TAB PO SCH (10:44)
[2019-04-08] MEDS: ASPirin-EC 81 mg tab PO SCH (10:44)
[2019-04-08] MEDS: CARVEDILOL 3.125 MG TAB PO SCH ×2 (10:46→20:48)
[2019-04-08 12:00] VITALS: BP 109/65
--- NOTE | 2019-04-08 16:33 | NUR ---
Assessment Pt is a 73 yr old alert and oriented male. Pt lives with , who is his emergency contact at [phone]. Prior to admit, pt was ambulatory, and independent with ADLs. Pt stated that he had surgery 6 days ago and had a stent put it. Pt's asked about options for caregivers and educated about home health. SW educated pt on private caregivers and asked if they were interested in referral information, pt declined at this time stating that they can manage. Pt receives [employer] income and his is employed. Pt has AD on file. Pt's can transport him home upon d/c. Pt will d/c home upon medical clearance. Addendum: 04/08/19 at 1641 by BERENICE HONEYCUTT Amended: Links added.
[2019-04-08 17:00] VITALS: BP 102/61
[2019-04-08] MEDS ORDERED: POTASSIUM EFFERVESENT TAB 25 MEQ PO SCH (18:30)
--- NOTE | 2019-04-08 18:33 | NUR ---
DR GIFFORD SAW PATIENT AND ADJUSTED MEDS. NEW ORDERS FOR PULMONARY, NEPHRO AND CARDIAC CLEARANCE IN AM. NEW ORDERS TO TAPER 02 DOWN TO 3L NC, AND PT. NEW ORDERS TO OBTAIN RECOMMENDATIONS FOR DC MEDS.
--- NOTE | 2019-04-08 19:30 | NUR ---
Opening Shift Note Assumed care of patient, awake and alert x4. Patient denies pain at this time. Patient is on 3L, NC no signs/symptoms of distress noted at this time. Instructed on plan of care and to call for assistance as needed, patient verbalized understanding. Bed is locked in lowest position, side rails x 2 are up, call light is within reach, and bed alarm is on.
[2019-04-08] MEDS: POTASSIUM CHL 20MEQ/100ML 100 ML IV SCH (20:46)
[2019-04-08] MEDS: POTASSIUM CHL 20 Meq TABLET PO SCH (20:46)
[2019-04-08] MEDS: FUROSEMIDE 40 MG TAB PO SCH (20:47)
[2019-04-08] MEDS: ATORVASTATIN 20 MG TAB PO SCH (20:47)
[2019-04-08] MEDS: DOXYCYCLINE 100 MG TAB/CAP PO SCH (21:03)
[2019-04-08 22:00] VITALS: BP 109/55
[2019-04-09] VITALS (7 sets, daily range): BP systolic 109–131; BP diastolic 55–80
[2019-04-09] MEDS: POTASSIUM CHL 20MEQ/100ML 100 ML IV SCH (00:11)
[2019-04-09] MEDS ORDERED: FUROSEMIDE 40 MG TAB PO SCH (06:00)
[2019-04-09] MEDS: ACCU-CHEK COMFORT CURVE STRIP VI SCH ×3 (06:21→17:00)
[2019-04-09] MEDS: InsuLIN REG 1unit/0.01ml Soln (100units/ml) SC SCH ×3 (06:22→17:00)
[2019-04-09 07:09] LABS: Basophils # (auto) 0 uL; Basophils % (auto) 0.4 % (0.0-2.0); Eosinophils # (auto) 0.6 uL; Eosinophils % (auto) 7.1 % (0.0-7.0); Hematocrit 33.3 % (41.0-53.0); Hemoglobin 11.5 g/dL (13.5-17.5); Lymphocytes # (auto) 1.6 uL; Lymphocytes % (auto) 18.2 % (10.0-50.0); Mean Corpuscular Hemoglobin 32.5 pg (28.0-32.0); Mean Corpuscular Hgb Conc. 34.7 g/dL (32.0-36.0); Mean Corpuscular Volume 93.7 fL (80.0-100.0); Monocytes # (auto) 0.7 uL; Monocytes % (auto) 7.5 % (0.0-12.0); Neutrophils # (auto) 5.9 uL; Neutrophils % (auto) 66.8 % (37.0-80.0); Nucleated Red Blood Cells % 0.1 %; Platelet Count (auto) 289 10^3/uL (140-450); Red Blood Cells 3.55 10^6/uL (4.5-5.90); Red Cell Distribution Width 12.8 % (11.8-14.3); White Blood Cell 8.8 10^3/uL (4.4-10.8)
--- NOTE | 2019-04-09 07:25 | NUR ---
Respiratory note: TOOK PT OFF BIPAP PER PT'S REQUEST. PLACED PT ON 3L OXYMIZER, HR 71, RR 16, POX 99%. PT AWAKE AND ALERT, NO S/S OF RESPIRATORY DISTRESS. PT SAYS HE SLEPT WELL WITH THE BIPAP, WILL WEAR AGAIN TONIGHT. WILL ENDORSE PT CARE TO NOC SHIFT RT.
--- NOTE | 2019-04-09 07:30 | NUR ---
Opening Shift Note Assumed care of patient, awake and alert. No S/S of distress/SOB or pain. Instructed on POC and to CALL FOR assist PRN, will continue to monitor for changes Q1hr and PRN.
[2019-04-09 07:34] LABS: Potassium 3.8 mmol/L (3.5-5.1)
[2019-04-09 07:41] LABS: BUN/Creatinine Ratio 20.6; Calcium 7.8 mg/dL (8.5-10.1)
--- NOTE | 2019-04-09 09:30 | NUR ---
PT'S NOTES AT BEDSIDE. PT AMBULATES IN THE ROOM WITH STEADY GAIT. NO DISTRESS NOTED.
[2019-04-09] MEDS: CLOPIDOGREL BISULFATE 75 MG TAB PO SCH (09:45)
[2019-04-09] MEDS: DOXYCYCLINE 100 MG TAB/CAP PO SCH (09:45)
[2019-04-09] MEDS: POTASSIUM CHL 20 Meq TABLET PO SCH (09:46)
[2019-04-09] MEDS: ASPirin-EC 81 mg tab PO SCH (09:46)
[2019-04-09] MEDS: FUROSEMIDE 40 MG TAB PO SCH (09:46)
[2019-04-09] MEDS: CARVEDILOL 3.125 MG TAB PO SCH (09:47)
[2019-04-09] MEDS ORDERED: ENOXAPARIN SOD 40 MG/0.4 ML SYRINGE SC SCH (10:00)
--- NOTE | 2019-04-09 13:43 | NUR ---
Covering for Itzel MORENO. Patient's O2 sat on room air 93%-95% while ambulating. Dr. Demarco Bruce aware.
[2019-04-09] MEDS ORDERED: CAR3125T PO (13:57)
[2019-04-09] MEDS ORDERED: CLOP75TA28 PO (13:57)
[2019-04-09] MEDS ORDERED: POTA-220 PO (13:57)
[2019-04-09] MEDS ORDERED: DOX100T PO (13:57)
[2019-04-09] MEDS ORDERED: ASP81EC PO (13:57)
[2019-04-09] MEDS ORDERED: ATOR20TA50 PO (13:57)
[2019-04-09] MEDS ORDERED: FURO40TA4 PO (13:57)
[2019-04-09] MEDS ORDERED: METF-370 (13:58)
[2019-04-09] MEDS ORDERED: LISINOPRIL 5 MG TAB PO ONE (14:15)
--- NOTE | 2019-04-09 14:30 | NUR ---
PER DR Jonny PETER, CALL HIM WITH ABG RESULTS.
--- NOTE | 2019-04-09 16:00 | NUR ---
PAGED DR Demarco PETER RE PT'S ABG RESULT. WAITING FOR CALL BACK.
--- NOTE | 2019-04-09 16:20 | NUR ---
ANOTHER MESSAGE LEFT FOR DR Jonny PETER RE: PT'S ABG RESULT AND TO CONFIRM PT'S DC ORDER. WAITING FOR CALL BACK.
--- NOTE | 2019-04-09 17:30 | NUR ---
NO CALL BACK FROM DR Jonny PETER. PAGED DR BIRD TO OBTAIN A CLEARANCE FOR DISCHARGE PER DR ROME GARCIA NOTES. PER DR. BIRD, OK TO DC PT.
[2019-04-10] MEDS ORDERED: LISINOPRIL 5 MG TAB PO SCH (10:00)
--- NOTE | 2019-04-10 16:39 | NUR ---
Discharge planning per SS consult. Patient has referral for home 02, safety eval and PT if recommended. Referrals sent to [facility], and [facility] for DME. Placed a follow up call to watch case polisher Elaina, and was advised that per Dr. Bruce, patient now has n needs on discharge as he did not qualify for home 02 and was doing well with PT here in the hospital. She advised she was contacting Dr. Bruce regarding discharge needs. Patient was discharged without needs.
== END 2019-04-09 18:35 | disposition home health service (06) | DRG 246 ==
LOC: ER 11:32 → EDBD 11:32 → CATH 1 11:56 → ICU WEST 12:40 → CATH 1 12:40 → ICU WEST 14:51 → TELE-EAST 04-04 17:17 → TELE-WESTW 04-08 06:02
PROVIDERS: ADMIT Internal Medicine; ATTEND Hospitalist
PROC: B2161ZZ Fluoroscopy of Right and Left Heart using Low Osmolar Contrast (ICD-10-PCS; principal; 2019-04-02)
PROC: 027034Z Dilation of Coronary Artery, One Artery with Drug-eluting Intraluminal Device, Percutaneous Approach (ICD-10-PCS; 2019-04-02)
PROC: 02C03ZZ Extirpation of Matter from Coronary Artery, One Artery, Percutaneous Approach (ICD-10-PCS; 2019-04-02)
PROC: B240ZZ3 Ultrasonography of Single Coronary Artery, Intravascular (ICD-10-PCS; 2019-04-02)
PROC: 3E033PZ Introduction of Platelet Inhibitor into Peripheral Vein, Percutaneous Approach (ICD-10-PCS; 2019-04-02)
PROC: B2131ZZ Fluoroscopy of Multiple Coronary Artery Bypass Grafts using Low Osmolar Contrast (ICD-10-PCS; 2019-04-02)
PROC: B41F1ZZ Fluoroscopy of Right Lower Extremity Arteries using Low Osmolar Contrast (ICD-10-PCS; 2019-04-02)
PROC: B2181ZZ Fluoroscopy of Left Internal Mammary Bypass Graft using Low Osmolar Contrast (ICD-10-PCS; 2019-04-02)
PROC: B2111ZZ Fluoroscopy of Multiple Coronary Arteries using Low Osmolar Contrast (ICD-10-PCS; 2019-04-02)
PROC: 4A133BC Monitoring of Arterial Pressure, Coronary, Percutaneous Approach (ICD-10-PCS; 2019-04-02)
PROC: 5A09357 Assistance with Respiratory Ventilation, Less than 24 Consecutive Hours, Continuous Positive Airway Pressure (ICD-10-PCS; 2019-04-05)
PROC: 5A09357 Assistance with Respiratory Ventilation, Less than 24 Consecutive Hours, Continuous Positive Airway Pressure (ICD-10-PCS; 2019-04-06)
PROC: 5A09457 Assistance with Respiratory Ventilation, 24-96 Consecutive Hours, Continuous Positive Airway Pressure (ICD-10-PCS; 2019-04-07)
DX: I21.19 ST elevation (STEMI) myocardial infarction involving other coronary artery of inferior wall (principal); I50.31 Acute diastolic (congestive) heart failure; J96.01 Acute respiratory failure with hypoxia; J18.9 Pneumonia, unspecified organism; N17.0 Acute kidney failure with tubular necrosis; I13.0 Hypertensive heart and chronic kidney disease with heart failure and stage 1 through stage 4 chronic kidney disease, or unspecified chronic kidney disease; I42.9 Cardiomyopathy, unspecified; E86.1 Hypovolemia; E11.22 Type 2 diabetes mellitus with diabetic chronic kidney disease; E78.00 Pure hypercholesterolemia, unspecified; E78.5 Hyperlipidemia, unspecified; I25.10 Atherosclerotic heart disease of native coronary artery without angina pectoris; N18.3 Chronic kidney disease, stage 3 (moderate); E11.65 Type 2 diabetes mellitus with hyperglycemia; E66.01 Morbid (severe) obesity due to excess calories; E87.6 Hypokalemia; Z87.891 Personal history of nicotine dependence; Z95.1 Presence of aortocoronary bypass graft; Z79.899 Other long term (current) drug therapy; Z68.26 Body mass index [BMI] 26.0-26.9, adult
CPT/HCPCS: 36415; 71045; 71250; 80048; 80053; 80061; 82962; 83036; 83735; 83880; 84132; 84484; 85025; 85610; 85730; 86141; 86850; 86900; 86901; 87040; 87070; 87077; 87081; 87186; 87205; 87493; 87804; 92928; 92973; 92978; 93005; 93306; 93454; 94660; 96374; 96375; 97116; 97163; 97530; 99152; 99153; 99291; C1874; C1887; G0378; J1815; J2250; J2405; J2543; J3480; Q9967

== ENCOUNTER 2024-09-08 12:30 | Inpatient (IN) | payer MEDICARE, OTHER ==
[~2024-09-08] VITALS: Ht 154.9 cm; Wt 60.0 kg
[~2024-09-08 12:30] MED LIST changes: +ASPI-394 PO; +ATOR20TA50 PO; +CARV-214 PO; +CLOP75TA28 PO; +DOX100T PO; +FURO40TA4 PO; +METF-370; +POTA-220 PO; -ZOLP10TA PO
--- NOTE | 2024-09-08 12:53 | ED.PDOC ---
History of Present Illness HPI Comments 78 year old male presents to the ED via EMS with a chief complaint of dizziness onset today (09/08/24). Patient states he woke up today around 07:00 experiencing nausea and dizziness. Patient checked BP, was elevated and called 911. Upon ED arrival patient's BP was 174/98. PMHx HTN, HLD. Denies fall, head injury, LOC, shortness of breath, chest pain, vomiting, diarrhea, fevers, chills. No other symptoms or modifying factors present at this time. Chief Complaint: Dizziness Time Seen by MD: 12:31 Primary Care Provider: KATARINA Main Notes: Medications, Allergies Allergies: Coded Allergies: NO KNOWN ALLERGIES (Unverified , 01/08/18) Home Meds Active Scripts Potassium Chloride (Klor-Con M20) 20 Meq Tab, 20 MEQ PO DAILY, #30 TAB Prov:GILBERTO PETER MD 04/09/19 Furosemide (Furosemide) 40 Mg Tab, 40 MG PO DAILY, #30 TAB Prov:GILBERTO PETER MD 04/09/19 Doxycycline Monohydrate (Doxycycline Monohydrate) 100 Mg Tab, 100 MG PO Q12HR, #18 TAB Prov:GILBERTO PETER MD 04/09/19 Clopidogrel Bisulfate (Plavix) 75 Mg Tab, 75 MG PO DAILY, #30 TAB Prov:GILBERTO PETER MD 04/09/19 Carvedilol (COREG) 3.125 Mg Tab, 3.125 MG PO Q12HR, #60 TAB Prov:GILBERTO PETER MD 04/09/19 Atorvastatin Calcium (ATORVASTATIN CALCIUM) 20 Mg Tab, 40 MG PO HS, #30 TAB Prov:GILBERTO PETER MD 04/09/19 Aspirin (Aspir-Low Ec) 81 Mg Tb, 81 MG PO DAILY, #30 TAB Prov:GILBERTO PETER MD 04/09/19 Reported Medications Metformin Hydrochloride (Metformin Hcl) 500 Mg Tab 04/09/19 Information Source: Patient Mode of Arrival: EMS Severity: Moderate Timing: Hours Duration: Since onset Prehospital treatment: None Past Medical History PAST MEDICAL HISTORY: High Lipids, HTN Surgical History: CABG Family History Family History: No family hx of DM Social History Smoker: Non-Smoker Alcohol: Denies ETOH Use Drugs: Denies Drug Use Lives In: Home Constitutional: denies: chills, diaphoresis, fatigue, fever, malaise, sweats, weakness, others EENTM: denies: blurred vision, double vision, ear bleeding, ear discharge, ear drainage, ear pain, ear ringing, eye pain, eye redness, hearing loss, mouth pain, mouth swelling, nasal discharge, nose bleeding, nose congestion, nose pain, photophobia, tearing, throat pain, throat swelling, voice changes, others Respiratory: denies: cough, hemoptysis, orthopnea, SOB at rest, shortness of breath, SOB with excertion, stridor, wheezing, others Cardiovascular: denies: chest pain, dizzy spells, diaphoresis, Dyspnea on exertion, edema, irregular heart beat, left arm pain, lightheadedness, palpitations, PND, syncope, others Gastrointestinal: denies: abdomen distended, abdominal pain, blood streaked bowels, constipated, diarrhea, dysphagia, difficulty swallowing, hematemesis, melena, nausea, poor appetite, poor fluid intake, rectal bleeding, rectal pain, vomiting, others Genitourinary: denies: burning, dysuria, flank pain, frequency, hematuria, incontinence, penile discharge, penile sore, pain, testicle pain, testicle swelling, urgency, others Neurological: reports: dizziness; denies: fainting, headache, left sided numbness, left sided weakness, numbness, paresthesia, pre-existing deficit, right sided numbness, right sided weakness, seizure, speech problems, tingling, tremors, weakness, others Musculoskeletal: denies: back pain, gout, joint pain, joint swelling, muscle pain, muscle stiffness, neck pain, others Integumetry: denies: bruises, change in color, change in hair/nails, dryness, laceration, lesions, lumps, rash, wounds, others Allergic/Immunocompromised: denies: Difficulty Healing, Frequent Infections, Hives, Itching, others Hematologic/Lymphatic: denies: anemia, blood clots, easy bleeding, easy bruising, swollen glands, others Endocrine: denies: excessive hunger, excessive sweating, excessive thirst, excessive urination, flushing, intolerance to cold, intolerance to heat, unexplained weight gain, unexplained weight loss, others Psychiatric: denies: anxiety, bipolar disorder, depression, hopeless, panic disorder, schizophrenia, sleepless, suicidal, others All Other Systems: Reviewed and Negative Physical Exam General Appearance: No Apparent Distress, Normal HEENT: Normal ENT Inspection, Pharynx Normal, TMs Normal Neck: Full Range of Motion, Non-Tender, Normal, Normal Inspection Respiratory: Chest Non-Tender, Lungs Clear, No Accessory Muscle Use, No Respiratory Distress, Normal Breath Sounds Cardiovascular: No Edema, No JVD, No Murmur, No Gallop, Normal Peripheral Pulses, Regular Rate/Rhythm Breast Exam: Deferred Gastrointestinal: No Organomegaly, Non Tender, No Pulsatile Mass, Normal Bowel Sounds, Soft Genitalia: Deferred Pelvic: Deferred Rectal: Deferred Extremities: No calf tenderness, Normal capillary refill, Normal inspection, Normal range of motion, Non-tender, No pedal edema Musculoskeletal : Apperance: Normal Neurologic: Alert, coil connector II-XII nml as Tested, No Motor Deficits, Normal Affect, Normal Mood, No Sensory Deficits Cerebellar Function: Normal Reflexes: Normal Skin: Dry, Normal Color, Warm Lymphatic: No Adenopathy Was a procedure done? Was a procedure done?: No Differential Dx Considerations may include: ACS, CVA, viral syndrome, pneumonia, electrolyte abnormality, infectious etiology X-Ray, Labs, Meds, VS Vital Signs Date Time Temp Pulse Resp B/P (MAP) Pulse Ox O2 Delivery O2 Flow Rate FiO2 09/08/24 12:37 97.7 62 18 174/98 (123) 99 97.7 09/08/24 12:30 61 Lab Test 09/08/24 13:04 Range/Units White Blood Count 5.9 4.4-10.8 10^3/uL Red Blood Count 4.58 4.5-5.90 10^6/uL Hemoglobin 14.7 13.5-17.5 g/dL Hematocrit 43.6 41.0-53.0 % Mean Corpuscular Volume 95.1 80.0-100.0 fL Mean Corpuscular Hemoglobin 32.0 28.0-32.0 pg Mean Corpuscular Hemoglobin Concent 33.6 32.0-36.0 g/dL Red Cell Distribution Width 12.8 11.8-14.3 % Platelet Count 259 140-450 10^3/uL Mean Platelet Volume 7.7 6.9-10.8 fL Neutrophils (%) (Auto) 70.8 37.0-80.0 % Lymphocytes (%) (Auto) 21.5 10.0-50.0 % Monocytes (%) (Auto) 4.8 0.0-12.0 % Eosinophils (%) (Auto) 2.6 0.0-7.0 % Basophils (%) (Auto) 0.3 0.0-2.0 % Neutrophils # (Auto) 4.2 1.6-8.6 10 ^3/uL Lymphocytes # (Auto) 1.3 0.4-5.4 10 ^3/uL Monocytes # (Auto) 0.3 0-1.3 10 ^3/uL Eosinophils # (Auto) 0.2 0-0.8 10 ^3/uL Basophils # (Auto) 0 0-0.2 10 ^3/uL Nucleated Red Blood Cells 0.0 % Sodium Level 141 136-145 mmol/L Potassium Level 4.3 3.5-5.1 mmol/L Chloride Level 106 98-107 mmol/L Carbon Dioxide Level 25 20-31 mmol/L Anion Gap 10 5-15 Blood Urea Nitrogen 31 H 9-23 mg/dL Creatinine 1.90 H 0.700-1.30 mg/dL Glomerular Filtration Rate Calc 35 >90 mL/min BUN/Creatinine Ratio 16.3 10.0-20.0 Serum Glucose 93 74-106 mg/dL Calcium Level 10.0 8.7-10.4 mg/dL Troponin I High Sensitivity 12 </=54 ng/L [place] [address] Ph: [phone] DIAGNOSTIC IMAGING Diagnostic Imaging Report : [id number] Signed PATIENT: LUIS ANTONIO BETH ACCT: [id number] UNIT: [id number] : 1945 LOC: ER ROOM / BED: / AGE / SEX: 78 / M ADM STATUS: REG ER SERVICE 1251 ORDERING PHYSICIAN: TATYANA CR MD PROCEDURE(s): HWOCT - HEAD WITHOUT CONTRAST REASON: dizzines ORDER NUMBER(s): [id number], ACCESSION NUMBER(s): [id number] EXAM: CT HEAD WITHOUT CONTRAST INDICATION: dizzines TECHNIQUE: CT of the head without intravenous contrast. Radiation Dose : 1. Head: CT Dose: CTDI volume is 57.89 mGy. Dose-length product is 1140.76 mGy*cm The dose indicators for CT are the volume Computed Tomography (CT) Dose Index (CTDIvol) and the Dose Length Product (DLP), and are measured in units of mGy and mGy-cm, respectively. These indicators are not patient dose, but values generated from the CT scanner acquisition factors. The report includes radiation exposure data for exposures received during this examination. COMPARISON: None FINDINGS: There is no evidence of acute intracranial hemorrhage, extra-axial collection, mass effect, midline shift, herniation or hydrocephalus. The ventricles, sulci and cisterns are age appropriate. The allison-white differentiation is intact. Patchy periventricular and subcortical white matter hypoattenuation is nonspecific but may be related to small vessel ischemic disease. The visualized paranasal sinuses and mastoid air cells are clear. The surrounding soft tissues and osseous structures are unremarkable. IMPRESSION: No acute intracranial abnormality. Radiation optimization: All CT scans at this facility use at least one of these dose optimization techniques: automated exposure control mA and/or kV adjustment per patient size (includes targeted exams where dose is matched to clinical indication) or iterative reconstruction. ATED BY: FABIO PRYOR MD DICTATED DATE/TIME: 09/08/24 1351 SIGNED BY: FABIO PRYOR MD SIGNED DATE/TIME: 09/08/24 1351 CC: [place] [address] Ph: [phone] DIAGNOSTIC IMAGING Diagnostic Imaging Report : [id number] Signed PATIENT: LUIS ANTONIO BETH ACCT: [id number] UNIT: [id number] : 1945 LOC: ER ROOM / BED: / AGE / SEX: 78 / M ADM STATUS: REG ER SERVICE 1251 ORDERING PHYSICIAN: TATYANA CR MD PROCEDURE(s): CXRP - CHEST PORTABLE REASON: dizziness ORDER NUMBER(s): [id number], ACCESSION NUMBER(s): [id number] CLINICAL INFORMATION: 78 years old, Male; dizziness. TECHNIQUE: Single AP portable chest radiograph was obtained. COMPARISON: CHEST PORTABLE on DOS: 04/08/19, CHEST PORTABLE on DOS: 04/07/19, CHEST PORTABLE on DOS: 04/05/19 FINDINGS: Lungs: Calcified pleural plaques in the left lung base. No focal consolidation, pneumothorax, or pleural effusion. Cardiac: Heart size is within normal limits. Postsurgical changes of prior CABG. Pulmonary vasculature: Unremarkable. Mediastinum/laurence: Moderate to marked atherosclerotic calcification of the aortic arch. Bones: No acute osseous abnormality identified. Other: No other significant findings. IMPRESSION: 1. No evidence of acute disease in the chest. 2. Nonacute findings as described above. ATED BY: DAVIDSON DEL CID DO DICTATED DATE/TIME: 09/08/241348 SIGNED BY: DAVIDSON DEL CID DO SIGNED DATE/TIME: 09/08/241348 CC: Time of 1ST Reevaluation: 13:01 Reevaluation 1ST: Unchanged Patient Education/Counseling: Diagnosis, Treatment, Prognosis Family Education/Counseling: No Family Present Additional Information The following tests were ordered, and results were reviewed by me: EKG, BMP, CBC, TROP -x3, UA, XY CHEST, CT HEAD WO CONTRAST Additional Information was gathered from interviewing the following independent historians: EMS I reviewed and agreed with the following test results read by other providers: XY CHEST, CT HEAD WO CONTRAST I discussed treatment and results with medical personnel and: patient Comprehensive systems review obtained and negative except for what is stated in the HPI. Departure 1 Departure Time of Disposition: 14:05 (Patient presented with near-syncope and dizziness today and should be admitted. Data: 1. I ordered and reviewed the result of at least 3 labs including a CBC, BMP, and troponin. 2. I independently interpreted the following tests: EKG which shows a sinus arrhythmia and a chest x-ray which shows benign chest and a CT head which shows benign brain.Risk:This patient has a high risk of morbidity due to further diagnostic testing or treatment and may suffer from an acute cardiac, neurologic, or infectious disorder. Rationale: Patient should be admitted to the hospital for further management.) Impression: Primary Impression: Dizziness Additional Impression: Near syncope Disposition: 09 ADMITTED INPATIENT Admit to: Med Surg Condition: Serious Critical Care Note Critical Care Time?: Yes Critical care comment: Concern for CVA Authorized and Performed by: Tatyana Cr MD Total critical care time: Approximately 39 minutes Due to a high probability of clinically significant, life threatening deterioration, the patient required my highest level of preparedness to intervene emergently and I personally spent this critical care time directly and personally managing the patient. This critical care time included obtaining a h istory; examining the patient; pulse oximetry; ordering and review of studies; arranging urgent treatment with development of a management plan; evaluation of patient's response to treatment; frequent reassessment; and, discussions with other providers. This critical care time was performed to assess and manage the high probability of imminent, life-threatening deterioration that could result in multi-organ failure. It was exclusive of separately billable procedures and treating other patients and teaching time. Please see my other sections and the rest of the note for further information on patient assessment and treatment. Stability Stability form required: No I personally scribed for TATYANA CR MD ([email or web address]) on 09/08/24 at 12:53. Electronically submitted by Monique Salazar ([email or web address]). I personally scribed for TATYANA CR MD ([email or web address]) on 09/08/24 at 13:17. Electronically submitted by Monique Salazar ([email or web address]). I personally scribed for TATYANA CR MD ([email or web address]) on 09/08/24 at 14:01. Electronically submitted by Moniqeu Salazar ([email or web address]). TATYANA CR MD September 08, 2024 12:53
[2024-09-08 13:25] LABS: Basophils # (auto) 0 10 ^3/uL (0-0.2); Basophils % (auto) 0.3 % (0.0-2.0); Eosinophils # (auto) 0.2 10 ^3/uL (0-0.8); Eosinophils % (auto) 2.6 % (0.0-7.0); Hematocrit 43.6 % (41.0-53.0); Hemoglobin 14.7 g/dL (13.5-17.5); Lymphocytes # (auto) 1.3 10 ^3/uL (0.4-5.4); Lymphocytes % (auto) 21.5 % (10.0-50.0); Mean Corpuscular Hgb Conc. 33.6 g/dL (32.0-36.0); Mean Corpuscular Volume 95.1 fL (80.0-100.0); Monocytes # (auto) 0.3 10 ^3/uL (0-1.3); Monocytes % (auto) 4.8 % (0.0-12.0); Neutrophils # (auto) 4.2 10 ^3/uL (1.6-8.6); Neutrophils % (auto) 70.8 % (37.0-80.0); Platelet Count (auto) 259 10^3/uL (140-450); Red Blood Cells 4.58 10^6/uL (4.5-5.90); Red Cell Distribution Width 12.8 % (11.8-14.3); White Blood Cell 5.9 10^3/uL (4.4-10.8)
[2024-09-08 13:41] LABS: Chloride 106 mmol/L (98-107); Potassium 4.3 mmol/L (3.5-5.1); Sodium 141 mmol/L (136-145)
[2024-09-08 13:42] LABS: Anion Gap 10 (5-15); Carbon Dioxide 25 mmol/L (20-31)
[2024-09-08 13:47] LABS: BUN/Creatinine Ratio 16.3 (10.0-20.0); Blood Urea Nitrogen 31 mg/dL (9-23); Glucose 93 mg/dL (74-106)
--- NOTE | 2024-09-08 13:51 | DVH ---
CLINICAL INFORMATION: 78 years old, Male; dizziness. TECHNIQUE: Single AP portable chest radiograph was obtained. COMPARISON: CHEST PORTABLE on DOS: 04/08/19, CHEST PORTABLE on DOS: 04/07/19, CHEST PORTABLE on DOS: FINDINGS: Lungs: Calcified pleural plaques in the left lung base. No focal consolidation, pneumothorax, or pleu ral effusion. Cardiac: Heart size is within normal limits. Postsurgical changes of prior CABG. Pulmonary vasculature: Unremarkable. Mediastinum/laurence: Moderate to marked atherosclerotic calcification of the aortic arch. Bones: No acute osseous abnormality identified. Other: No other significant findings. IMPRESSION: 1. No evidence of acute disease in the chest. 2. Nonacute findings as described above.
--- NOTE | 2024-09-08 13:54 | DVH ---
EXAM: CT HEAD WITHOUT CONTRAST INDICATION: dizzines TECHNIQUE: CT of the head without intravenous contrast. Radiation Dose : 1. Head: CT Dose: CTDI volume is 57.89 mGy. Dose-length product is 1140.76 mGy*cm The dose indicators for CT are the volume Computed Tomography (CT) Dose Index (CTDIvol) and the Dose Length Product (DLP), and are measured in units of mGy and mGy-cm, respectively. These indicators are not patient dose, but values generated from the CT scanner acquisition factors. The report includes radiation exposure data for exposures received during this examination. COMPARISON: None FINDINGS: There is no evidence of acute intracranial hemorrhage, extra-axial collection, mass effect, midline s hift, herniation or hydrocephalus. The ventricles, sulci and cisterns are age appropriate. The allison-white differentiation is intact. Patchy periventricular and subcortical white matter hypoattenuation is nonspecific but may be related to small vessel ischemic disease. The visualized paranasal sinuses and mastoid air cells are clear. The surrounding soft tissues and osseous structures are unremarkable. IMPRESSION: No acute intracranial abnormality. Radiation optimization: All CT scans at this facility use at least one of these dose optimization veronica hniques: automated exposure control mA and/or kV adjustment per patient size (includes targeted exam s where dose is matched to clinical indication) or iterative reconstruction.
[2024-09-08 17:50] VITALS: PULSE 66; RESP 14; O2SAT 100
[2024-09-08] MEDS ORDERED: NITROGLYCERIN 0.4 MG SL TAB SL PRN (20:45)
[2024-09-08] MEDS ORDERED: MORPHINE SULFATE INJ 2 MG/ml SYRG IV PRN (20:45)
[2024-09-08] MEDS ORDERED: HYDROcodone-ACET 5/325MG TAB PO PRN (20:45)
[2024-09-08] MEDS ORDERED: ACETAMINOPHEN 325 MG TAB PO PRN (20:45)
--- NOTE | 2024-09-08 20:46 | DVHHP2 ---
History of Present Illness Reason for Visit: hypertensive urgency/presyncope History of Present Illness A 78y old male with PMHx CABG, HTN, DM and HLD who came to ED due to hypertensive urgency and presyncope. According to the patient and , around 10 am today the patient started to be dizzy and felt lightheadedness, he denied any LOC, chest pain or SOB but stated that he is not taking his medications for a couple of weeks. EMS was called and he was found with BP above 190, reason that he was brought to the hospital. EKG at admission: sinus rhythm with prolonged OK. LVH Labs: CKD stage 3b Head CT scan unremarkable Chest xray: unremarkable Home meds: Carvedilol 3.125 mg, fenofibrate 48 mg, amitriptyline 25 mg, gabapentin 100 mg, clopidogrel 75 mg, Farxiga 10 mg, zolpidem 10 mg, febuxostat 40 mg, bicarbonate, kerendia 20 mg, valsartan/hctz, metformin PAST MEDICAL HISTORY: High Lipids, HTN, DM, CKD, mesentery ischemia Surgical History: CABG Family History: No family hx of DM Social History Smoker: Non-Smoker Alcohol: Denies ETOH Use Drugs: Denies Drug Use Lives In: Home Review of Systems Constitutional: No: Fever, Chills, Sweats, Weakness, Malaise, Other Eyes: No: Pain, Vision change, Conjunctivae inflammation, Eyelid inflammation, Other, Redness ENT: No: Ear pain, Ear discharge, Nose pain, Nose discharge, Nose congestion, Mouth pain, Mouth swelling, Throat pain, Throat swelling, Other Respiratory: No: Cough, Dry, Shortness of breath, SOB with excertion, Wheezing, Hemoptysis, Pleuritic Pain, Sputum, Wheezing, Other Cardiovascular: Lt Headedness; No: Chest Pain, Palpitations, Orthopnea, Paroxysmal Noc. Dyspnea, Edema, Other Gastrointestinal: No: Nausea, Vomiting, Abdominal Pain, Diarrhea, Constipation, Melena, Hematochezia, Other Genitourinary: No Dysuria, No Frequency, No Incontinence, No Hematuria, No Retention, No Other Musculoskeletal: No: other, neck pain, shoulder pain, arm pain, back pain, hand pain, leg pain, foot pain Skin: No: Rash, Lesions, Jaundice, Bruising, Other Neurological: Weakness; No: Numbness, Incoordination, Change in speech, Confusion, Seizures, Other Allergies: Coded Allergies: NO KNOWN ALLERGIES (Unverified , 01/08/18) Exam Vital Signs Vital Signs Date Time Temp Pulse Resp B/P (MAP) Pulse Ox O2 Delivery O2 Flow Rate FiO2 09/08/24 17:50 66 14 100 Room Air* 0 21 09/08/24 17:50 97.8 150/81 (104) 97.8 General Appearance: Alert, Oriented X3 HEENT: Atraumatic, PERRLA, EOMI, Mucous membr. moist/pink Respiratory: Clear to auscultation Cardiovascular: Regular rate, Normal S1 Abdominal: Normal bowel sounds, Soft Extremities: No clubbing, No cyanosis Skin: No rashes, No breakdown Neuro: Normal gait, Normal speech Psych/Mental Status: Mental status NL, Mood NL Labs/Xrays Labs Test 09/08/24 16:16 09/08/24 13:04 Range/Units Troponin I High Sensitivity 12 </=54 ng/L White Blood Count 5.9 4.4-10.8 10^3/uL Red Blood Count 4.58 4.5-5.90 10^6/uL Hemoglobin 14.7 13.5-17.5 g/dL Hematocrit 43.6 41.0-53.0 % Mean Corpuscular Volume 95.1 80.0-100.0 fL Mean Corpuscular Hemoglobin 32.0 28.0-32.0 pg Mean Corpuscular Hemoglobin Concent 33.6 32.0-36.0 g/dL Red Cell Distribution Width 12.8 11.8-14.3 % Platelet Count 259 140-450 10^3/uL Mean Platelet Volume 7.7 6.9-10.8 fL Neutrophils (%) (Auto) 70.8 37.0-80.0 % Lymphocytes (%) (Auto) 21.5 10.0-50.0 % Monocytes (%) (Auto) 4.8 0.0-12.0 % Eosinophils (%) (Auto) 2.6 0.0-7.0 % Basophils (%) (Auto) 0.3 0.0-2.0 % Neutrophils # (Auto) 4.2 1.6-8.6 10 ^3/uL Lymphocytes # (Auto) 1.3 0.4-5.4 10 ^3/uL Monocytes # (Auto) 0.3 0-1.3 10 ^3/uL Eosinophils # (Auto) 0.2 0-0.8 10 ^3/uL Basophils # (Auto) 0 0-0.2 10 ^3/uL Nucleated Red Blood Cells 0.0 % Sodium Level 141 136-145 mmol/L Potassium Level 4.3 3.5-5.1 mmol/L Chloride Level 106 98-107 mmol/L Carbon Dioxide Level 25 20-31 mmol/L Anion Gap 10 5-15 Blood Urea Nitrogen 31 H 9-23 mg/dL Creatinine 1.90 H 0.700-1.30 mg/dL Glomerular Filtration Rate Calc 35 >90 mL/min BUN/Creatinine Ratio 16.3 10.0-20.0 Serum Glucose 93 74-106 mg/dL Calcium Level 10.0 8.7-10.4 mg/dL Assessment/Plan Assessment/Plan #Hypertensive urgency #Presyncope #CKD stage 3 b #Diabetes mellitus type 2 #Hypertensive heart disease with distolic dysfunction #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 20:44 Acetaminophen Tablet [facility] 09/08/24 Transmitted (Tylenol Tablet) 20:45 Notify Of Changes [facility] 09/08/24 Transmitted From Base 20:44 Advance Directive [facility] 09/08/24 Transmitted 20:44 Patient Condition ORDERS 09/08/24 Transmitted 20:44 Allergies [facility] 09/08/24 Transmitted 20:44 Hydrocodone-Acet [facility] 09/08/24 Transmitted 5/325mg Tab (Covert 20:45 Nitroglycerin [facility] 09/08/24 Transmitted Sublingual (Ntrostat 20:45 Morphine Sulfate [facility] 09/08/24 Transmitted Injection 20:45 Oxygen By Nasal RT 09/08/24 Transmitted Cannula 20:44 Stat Ekg For Chest [facility] 09/08/24 Transmitted Pain 20:44 Notify Of Changes [facility] 09/08/24 Transmitted From Base 20:44 Oracle Database Developer For [facility] 09/08/24 Transmitted 24 Hours 20:44 Emergency Dysrhythmia [facility] 09/08/24 Transmitted Protocol 20:44 Rhythm Strips Once [facility] 09/08/24 Transmitted Every Shift 20:44 Date of Service: September 08, 2024 Billing Provider: KOKO GOMES MD Common Visit Codes: 09696-[id number] INP/OBS CARE (HIGH) Secondary Visit Codes: [id number] CARE PLAN 30 MINUTES DEXTER DASILVA RESIDENT September 08, 2024 20:46
[2024-09-08] MEDS ORDERED: DEXTROSE (50%) 50ML SYRG IV PRN (21:00)
[2024-09-08] MEDS ORDERED: hydrALAZINE HCL 20 MG/ML VL IV PRN (21:00)
[2024-09-08] MEDS: VALSARTAN 80 MG TAB PO SCH (21:22)
[2024-09-08] MEDS: ACCU-CHEK COMFORT CURVE STRIP VI SCH (22:00)
[2024-09-08] MEDS: InsuLIN REG 1unit/0.01ml Soln (100units/ml) SC SCH (22:49)
[2024-09-08 23:53] LABS: Urine Bacteria None Seen /hpf (None Seen)
[2024-09-09] VITALS (9 sets, daily range): BP systolic 132–153; BP diastolic 71–81; PULSE 60–85; RESP 12–18; TEMP 36.3; O2SAT 96–99
[2024-09-09 00:05] LABS: Urine Blood Negative /uL (Negative); Urine Clarity Clear (Clear); Urine Color Light-Yellow (Yellow); Urine Hyaline Cast FEW /lpf (0 - 2); Urine Protein, UAD 2+ (Negative); Urine Specific Gravity 1.013 (1.001-1.035); Urine Squamous Epithelial Cell FEW /hpf (<5); Urine Urobilinogen Normal (Negative); Urine WBC 1 /HPF (0-3); Urine pH 6.5 (5.0-9.0)
[2024-09-09 09:34] LABS: Basophils # (auto) 0 10 ^3/uL (0-0.2); Basophils % (auto) 0.7 % (0.0-2.0); Eosinophils # (auto) 0.4 10 ^3/uL (0-0.8); Eosinophils % (auto) 6.1 % (0.0-7.0); Hematocrit 42.2 % (41.0-53.0); Hemoglobin 14.5 g/dL (13.5-17.5); Lymphocytes # (auto) 1.4 10 ^3/uL (0.4-5.4); Lymphocytes % (auto) 24.6 % (10.0-50.0); Mean Corpuscular Hemoglobin 32.4 pg (28.0-32.0); Mean Corpuscular Hgb Conc. 34.4 g/dL (32.0-36.0); Mean Corpuscular Volume 94.3 fL (80.0-100.0); Monocytes # (auto) 0.4 10 ^3/uL (0-1.3); Neutrophils # (auto) 3.6 10 ^3/uL (1.6-8.6); Neutrophils % (auto) 61.6 % (37.0-80.0); Nucleated Red Blood Cells % 0.1 %; Platelet Count (auto) 234 10^3/uL (140-450); Red Blood Cells 4.48 10^6/uL (4.5-5.90); Red Cell Distribution Width 12.7 % (11.8-14.3); White Blood Cell 5.8 10^3/uL (4.4-10.8)
[2024-09-09 09:48] LABS: INR 0.98 (0.9-1.15); Partial Thromboplastin Time 29.4 SEC (24.5-34.5); Prothrombin Time 10.4 sec (9.3-11.8)
[2024-09-09 09:52] LABS: Albumin 4.5 g/dL (3.2-4.8); Alkaline Phosphatase 86 U/L (46-116); Anion Gap 11 (5-15); Aspartate Aminotransferase 17 U/L (13-40); BUN/Creatinine Ratio 13.6 (10.0-20.0); Calcium 9.8 mg/dL (8.7-10.4); Carbon Dioxide 24 mmol/L (20-31); Chloride 105 mmol/L (98-107); Cholesterol 197 mg/dL (< 200); Glucose 103 mg/dL (74-106); HDL Cholesterol 49 mg/dL (40-59); Magnesium 2.1 mg/dL (1.6-2.6); Phosphorus 3.6 mg/dL (2.4-5.1); Potassium 3.7 mmol/L (3.5-5.1); Sodium 140 mmol/L (136-145); Total Protein 7.4 g/dL (5.7-8.2); Triglycerides 147 mg/dL (< 150)
[2024-09-09 09:53] LABS: Alanine Aminotransferase < 9 U/L (7-40); Bilirubin, Total 0.9 mg/dL (0.2-1.0); Blood Urea Nitrogen 29 mg/dL (9-23); LDL Cholesterol 128 mg/dL (< 100)
[2024-09-09] MEDS: CLOPIDOGREL BISULFATE 75 MG TAB PO SCH (09:58)
[2024-09-09] MEDS: ENOXAPARIN SOD 40 MG/0.4 ML SYRINGE SC SCH (09:59)
[2024-09-09] MEDS ORDERED: ATOR20TA50 PO (11:11)
[2024-09-09] MEDS ORDERED: CARV-214 PO (11:11)
[2024-09-09] MEDS ORDERED: FURO40TA4 PO (11:11)
[2024-09-09] MEDS ORDERED: CLOP75TA28 PO (11:11)
--- NOTE | 2024-09-09 11:14 | DVHDS2 ---
Discharge Summary Date of Admission September 08, 2024 at 20:44 Date of Discharge: September 09, 2024 Labs/Diagnostic Data: Laboratory Results Test 09/09/24 09:00 09/09/24 06:07 09/08/24 23:45 09/08/24 16:16 White Blood Count 5.8 10^3/uL (4.4-10.8) Red Blood Count 4.48 10^6/uL (4.5-5.90) Hemoglobin 14.5 g/dL (13.5-17.5) Hematocrit 42.2 % (41.0-53.0) Mean Corpuscular Volume 94.3 fL (80.0-100.0) Mean Corpuscular Hemoglobin 32.4 pg (28.0-32.0) Mean Corpuscular Hemoglobin Concent 34.4 g/dL (32.0-36.0) Red Cell Distribution Width 12.7 % (11.8-14.3) Platelet Count 234 10^3/uL (140-450) Mean Platelet Volume 7.4 fL (6.9-10.8) Neutrophils (%) (Auto) 61.6 % (37.0-80.0) Lymphocytes (%) (Auto) 24.6 % (10.0-50.0) Monocytes (%) (Auto) 7.0 % (0.0-12.0) Eosinophils (%) (Auto) 6.1 % (0.0-7.0) Basophils (%) (Auto) 0.7 % (0.0-2.0) Neutrophils # (Auto) 3.6 10 ^3/uL (1.6-8.6) Lymphocytes # (Auto) 1.4 10 ^3/uL (0.4-5.4) Monocytes # (Auto) 0.4 10 ^3/uL (0-1.3) Eosinophils # (Auto) 0.4 10 ^3/uL (0-0.8) Basophils # (Auto) 0 10 ^3/uL (0-0.2) Nucleated Red Blood Cells 0.1 % Prothrombin Time 10.4 sec (9.3-11.8) Prothrombin Time INR 0.98 (0.9-1.15) Activated Partial Thromboplast Time 29.4 SEC (24.5-34.5) Sodium Level 140 mmol/L (136-145) Potassium Level 3.7 mmol/L (3.5-5.1) Chloride Level 105 mmol/L (98-107) Carbon Dioxide Level 24 mmol/L (20-31) Anion Gap 11 (5-15) Blood Urea Nitrogen 29 mg/dL (9-23) Creatinine 2.14 mg/dL (0.700-1.30) Glomerular Filtration Rate Calc 31 mL/min (>90) BUN/Creatinine Ratio 13.6 (10.0-20.0) Serum Glucose 103 mg/dL (74-106) Hemoglobin A1c 4.3 % A1C (<5.7) Calcium Level 9.8 mg/dL (8.7-10.4) Phosphorus Level 3.6 mg/dL (2.4-5.1) Magnesium Level 2.1 mg/dL (1.6-2.6) Total Bilirubin 0.9 mg/dL (0.2-1.0) Aspartate Amino Transferase (AST) 17 U/L (13-40) Alanine Aminotransferase (ALT) < 9 U/L (7-40) Alkaline Phosphatase 86 U/L (46-116) Total Protein 7.4 g/dL (5.7-8.2) Albumin 4.5 g/dL (3.2-4.8) Triglycerides Level 147 mg/dL (< 150) Cholesterol Level 197 mg/dL (< 200) LDL Cholesterol 128 mg/dL (< 100) HDL Cholesterol 49 mg/dL (40-59) Vitamin B12 Level 863 pg/mL (211-911) Vitamin D 25-Hydroxy 60.7 ng/mL (30.0-100) Thyroid Stimulating Hormone (TSH) 0.59 uIU/mL (0.55-4.78) POC Glucose 101 mg/dl (70-106) Urine Color Light-yellow (Yellow) Urine Clarity Clear (Clear) Urine pH 6.5 (5.0-9.0) Urine Specific [place] 1.013 (1.001-1.035) Urine Protein 2+ (Negative) Urine Ketones Negative (Negative) Urine Blood Negative /uL (Negative) Urine Nitrite Negative (Negative) Urine Bilirubin Negative (Negative) Urine Urobilinogen Normal mg/dL (Negative) Urine Leukocyte Esterase Negative /uL (Negative) Urine RBC <1 /hpf (0 - 3) Urine Microscopic WBC 1 /HPF (0-3) Urine Squamous Epithelial Cells Few /hpf (<5) Urine Bacteria None seen /hpf (None Seen) Urine Hyaline Casts Few /lpf (0 - 2) Urine Glucose 4+ mg/dL (Normal) Troponin I High Sensitivity 12 ng/L (</=54) Other Laboratory Tests 09/09/24 09:00 Brief Hx & Hospital Course: Final diagnoses: Uncontrolled hypertension Hypertensive emergency Noncompliance Coronary artery disease status post CABG Type 2 diabetes Chronic kidney disease Hypertension Mixed hyperlipidemia 78-year-old male with a history of hypertension and coronary artery disease and diabetes and chronic kidney disease who stopped taking his medications 2 weeks ago because he did not think he needs them anymore He came here with a chief complaint of high blood pressure and dizziness Blood pressure was 174/98 He was restarted on his home medications and overnight he is doing better His last blood pressure now is 141/79 His dizziness is better The patient is stable for discharge His kidney function is stable, he has chronic kidney disease stage IIIB Follow up with his primary care physician as soon as possible Refills on all his home medications were sent to his pharmacy including Plavix and Coreg and atorvastatin and Lasix Condition at Discharge: Stable Final Diagnosis/Problems List Uncontrolled hypertension Hypertensive emergency Noncompliance Coronary artery disease status post CABG Type 2 diabetes Chronic kidney disease Hypertension Mixed hyperlipidemia Discharge Disposition: Home SNF Discharge Will this Physician continue t: No Discharge Instruct/Medications Diet: Consistent carbohydrate, Cardiac 2g Na,low cholest Activity: No Restrictions, As Tolerated Follow Up/Referral: PCP as soon as possible Medications: Same home medication Discharge Statement: "Patient was advised to return to the ER or call 911 if any headaches, dizziness, shortness of breath, chest pain, abdominal pain, bleeding, fevers, or worsening of medical condition. Patient was counseled about treatment plan, medications, possible side effects, patientverbalized understanding. All questions were answered to the best of my ability. This discharge took greater then 30 minutes in planning, reviewing documentation, counseling the patient, and discussing with other team members." ASSESSMENT ASSESSMENT Assessment Uncontrolled hypertension Hypertensive emergency Noncompliance Coronary artery disease status post CABG Type 2 diabetes Chronic kidney disease Hypertension Mixed hyperlipidemia Date of Service: September 09, 2024 Billing Provider: BEV WRIGHT MD Common Visit Codes: NOT BILLABLE BEV WRIGHT MD September 09, 2024 11:14
== END 2024-09-09 13:50 | disposition home or self-care (01) | DRG 305 ==
LOC: EDBD 12:30 → EDSEX 12:30 → ER 12:30 → OVERFLOW 20:44 → TELE-CENTR 21:27
PROVIDERS: ADMIT Internal Medicine Geriatric Medicine; ATTEND Internal Medicine Geriatric Medicine
DX: I16.1 Hypertensive emergency (principal); I25.10 Atherosclerotic heart disease of native coronary artery without angina pectoris; I13.10 Hypertensive heart and chronic kidney disease without heart failure, with stage 1 through stage 4 chronic kidney disease, or unspecified chronic kidney disease; E11.22 Type 2 diabetes mellitus with diabetic chronic kidney disease; E78.2 Mixed hyperlipidemia; I25.5 Ischemic cardiomyopathy; N18.32 Chronic kidney disease, stage 3b; I44.1 Atrioventricular block, second degree; Z91.128 Patient's intentional underdosing of medication regimen for other reason; Z95.1 Presence of aortocoronary bypass graft; Z79.899 Other long term (current) drug therapy; Z91.199 Patient's noncompliance with other medical treatment and regimen due to unspecified reason
CPT/HCPCS: 36415; 70450; 71045; 80048; 80053; 80061; 81001; 82306; 82607; 82962; 83036; 83735; 84100; 84443; 84484; 85025; 85610; 85730; 99291; G0378